=== PATIENT | female | born 1995 | race Caucasian/White ===

== ENCOUNTER 2020-05-07 00:36 | Outpatient (CLI) | payer BC, SELFPAY ==
--- NOTE | 2020-05-07 07:00 | DI.US_ITS ---
EXAM: US SOFT TISSUE HEAD OR NECK CLINICAL HISTORY: evaluate nodule, MOBILE LT NECK MASS,R22.1. TECHNIQUE: Ultrasound was performed using standard protocol. COMPARISON: No exams were available for comparison FINDINGS: Sonographic assessment utilizing grayscale and color Doppler imaging was performed and targeted to th e area of clinical concern. There is an ovoid 0.8 x 0.2 x 0.8 cm well-circumscribed hypoechoic nodule corresponding to the palpab le abnormality. No internal blood flow is seen. No posterior acoustic enhancement or shadowing is s een. IMPRESSION: 0.8 x 0.2 x 0.8 cm hypoechoic nodule in the left neck corresponding to the palpable abnormality. No suspicious findings are seen sonographically. This may represent a benign lesion such as a lymph nod e. If there is continued clinical concern a biopsy may be considered. DATA REPOSITORY:
== END 2020-05-07 00:56 ==
PROVIDERS: PCP Student in an Organized Health Care Education/Training Program; Visit Provider Student in an Organized Health Care Education/Training Program
DX: R22.1 Localized swelling, mass and lump, neck (principal)
CPT/HCPCS: 76536

== ENCOUNTER 2020-05-07 00:50 | Outpatient (CLI) | payer BC, SELFPAY ==
[2020-05-07 13:56] LABS: HGB 12.5 g/dL (11.2-15.7); MCH 28.8 pg (27.0-33.0); MCHC 32.9 % (32.0-36.0); MCV 87.6 fL (80-95); MPV 8.9 fL (8.0-11.0); Platelet Count 346 10^3/uL (130-400); RBC 4.34 10^6/uL (3.93-5.22); WBC 8.84 10^3/uL (4.4-10.8)
[2020-05-07 14:52] LABS: ALT 127 U/L (14-59); AST 48 U/L (15-37); Albumin 4.1 g/dL (3.4-5.0); Alkaline Phosphatase 90 U/L (46-116); Anion Gap 7.6 mmol/L (3-11); BUN 7 mg/dL (7-18); Bilirubin, Total 0.4 mg/dL (0.2-1.0); CO2 27.4 mmol/L (21.0-32.0); CREATININE 0.56 mg/dL (0.55-1.02); Calcium 8.6 mg/dL (8.5-10.1); Calculated LDL 102 mg/dL (<100); Chloride 104 mmol/L (98-107); Cholesterol 161 mg/dL (<200); Glucose 82 mg/dL (74-106); HDL Cholesterol 51 mg/dL (40-60); Potassium 4.4 mmol/L (3.5-5.1); Sodium 139 mmol/L (136-145); TSH (W/Ref FT4) 1.21 uIU/mL (0.36-3.74); Total Protein 7.8 g/dL (6.4-8.2); Triglyceride 43 mg/dL (<150)
== END 2020-05-07 01:10 ==
PROVIDERS: PCP Student in an Organized Health Care Education/Training Program; Visit Provider Student in an Organized Health Care Education/Training Program
DX: Z83.49 Family history of other endocrine, nutritional and metabolic diseases (principal); E04.1 Nontoxic single thyroid nodule; E86.0 Dehydration; Z13.220 Encounter for screening for lipoid disorders; Z86.2 Personal history of diseases of the blood and blood-forming organs and certain disorders involving the immune mechanism
CPT/HCPCS: 36415; 80053; 80061; 85027; 84443

== ENCOUNTER 2021-09-02 09:04 | Outpatient (REF) | payer OTHER, SELFPAY ==
--- NOTE | 2021-09-02 08:30 | PAPFT_PTH ---
PATIENT: Andreas Crane LOC: [facility] U#:[id number] AGE/SX: 26/F ROOM: RE09/02/[address]: Jada Khan DO : 1995 BED: DIS: 09/02/2021 SPEC #: [id number] RECD: 09/02/21 12:54 STATUS: SOUSydni REQ #: [id number] GEMA: 09/02/21 08:[address]: Jada Khan DEPT: [facility] Cytology RECD BY: Eileen Mazariegos ENTERED: 09/02/21 12:55 SP TYPE: PAPFT OT DR: Unknown,Unknown Tissues: 1 - CX/ENDOCX FOR PAP SMEARS Procedures: PAP THIN PREP/UVM Screening Comments: [id number]
== END 2021-09-02 09:05 | disposition home or self-care (01) ==
LOC: LBN 09:04
PROVIDERS: Visit Provider Obstetrics & Gynecology
DX: Z12.4 Encounter for screening for malignant neoplasm of cervix (principal)
CPT/HCPCS: 88142

== ENCOUNTER 2021-11-10 02:00 | Outpatient (CLI) | payer OTHER, SELFPAY ==
[2021-11-10 07:24] LABS: HCT 36.8 % (36.0-46.0); HGB 12.3 g/dL (11.2-15.7); MCH 29.1 pg (27.0-33.0); MCHC 33.4 % (32.0-36.0); MCV 87 fL (80-95); MPV 8.8 fL (8.0-11.0); Platelet Count 279 10^3/uL (130-400); RBC 4.23 10^6/uL (3.93-5.22); RDW 11.9 % (11.7-14.6); RDW-SD 38.4 fL; WBC 6.22 10^3/uL (4.4-10.8)
[2021-11-10 08:49] LABS: ALT 21 U/L (14-59); AST 13 U/L (15-37); Albumin 4.2 g/dL (3.4-5.0); Alkaline Phosphatase 74 U/L (46-116); Anion Gap 8.1 mmol/L (3-11); BUN 10 mg/dL (7-18); Bilirubin, Total 0.5 mg/dL (0.2-1.0); CO2 27.9 mmol/L (21.0-32.0); CREATININE 0.6 mg/dL (0.55-1.02); Calcium 8.6 mg/dL (8.5-10.1); Calculated LDL 105 mg/dL (<100); Chloride 105 mmol/L (98-107); Cholesterol 173 mg/dL (<200); Ferritin 102 ng/mL (8-252); Glucose 89 mg/dL (74-106); HDL Cholesterol 61 mg/dL (40-60); Potassium 4.1 mmol/L (3.5-5.1); Sodium 141 mmol/L (136-145); Total Protein 7.7 g/dL (6.4-8.2); Triglyceride 38 mg/dL (<150); Vitamin B12 618 pg/mL (193-986)
== END 2021-11-10 02:01 | disposition home or self-care (01) ==
LOC: LBO 02:00
PROVIDERS: PCP Nurse Practitioner; Visit Provider Nurse Practitioner
DX: R53.83 Other fatigue (principal); R63.5 Abnormal weight gain; Z13.220 Encounter for screening for lipoid disorders; Z86.2 Personal history of diseases of the blood and blood-forming organs and certain disorders involving the immune mechanism; Z98.84 Bariatric surgery status
CPT/HCPCS: 36415; 80053; 80061; 85027; 82607; 82728; 84443

== ENCOUNTER 2021-12-07 02:20 | Outpatient (CLI) | payer OTHER, SELFPAY ==
--- NOTE | 2021-12-07 14:00 | NS.NUTBLAN_ITS ---
Verito was referred to medical nutrition therapy for weight management. 5'4 173 lbs BMI: 29 Had gastric sleeve in July 2020 with initial weight of 225 lbs. Has lost 52 lbs but wants to lose more. Goal weight: 150 lbs. She is also in process of starting a family but has not gotten yet. Most recent labs indicates lipids, TSH, B12 wnl. No vitamin D taken. Diet Recall: roll for breakfast, lunch a sandwich, granola bars, dinner often take out, popcorn at night. Will vomit if over eats. Session today focused on how to count carbs and to limit carbs to no more than 100 grams daily. Lower carb diet will help with weight loss. Also, recommend 10,000 steps daily- uses fit bit and typically walks 6-8 K per day. Will need to increase steps also to help with further weight loss. Going to [place] next month. Is concerned she will regain weight while there. Reviewed typical meals and how to adjust to avoid higher carb meals. Recommend MVI and Vit D Will follow up for follow up appt. when returns from vacation.
== END 2021-12-07 02:21 | disposition home or self-care (01) ==
LOC: DS 02:20
PROVIDERS: PCP Nurse Practitioner; Visit Provider Dietitian, Registered
DX: Z98.84 Bariatric surgery status (principal); Z68.29 Body mass index [BMI] 29.0-29.9, adult; Z71.3 Dietary counseling and surveillance; E66.8 Other obesity
CPT/HCPCS: 97802

== ENCOUNTER 2022-06-03 02:12 | Outpatient (CLI) | payer OTHER, SELFPAY ==
[2022-06-03 11:37] LABS: Panorama Kit Sent via Fed Ex
[2022-06-03 11:45] LABS: Abs Immature Grans 0.02 10^3/uL (0.0-0.06); Absolute Basophil Count 0.04 10^3/uL (0.0-0.2); Absolute Eosinophil Count 0.12 10^3/uL (0.0-0.7); Absolute Lymphocyte Count 1.68 10^3/uL (1.2-3.4); Absolute Monocyte Count 0.43 10^3/uL (0.1-0.8); Absolute Neutrophil Count 6.04 10^3/uL (1.2-6.7); Basophils % 0.5; Eosinophils % 1.4; HCT 30.4 % (36.0-46.0); HGB 10.5 g/dL (11.2-15.7); Immature Grans % 0.2; Lymphocytes % 20.2; MCH 29.2 pg (27.0-33.0); MCHC 34.5 % (32.0-36.0); MCV 85 fL (80-95); MPV 8.7 fL (8.0-11.0); Monocytes % 5.2; Neutrophils % 72.5; Platelet Count 281 10^3/uL (130-400); RBC 3.59 10^6/uL (3.93-5.22); RDW 12.5 % (11.7-14.6); RDW-SD 38.4 fL; WBC 8.33 10^3/uL (4.4-10.8)
[2022-06-03 12:16] LABS: Glucose,1 Hr (Glucola) 118 mg/dL (80-140)
[2022-06-05 14:26] LABS: Syphilis IgG w/Reflex Nonreactive (Nonreactive)
[2022-06-06 09:14] LABS: Varicella IgG Antibody Positive (See Note)
[2022-06-06 09:18] LABS: Rubella IgG Ab (UVM) Positive (See Note)
[2022-06-06 10:36] LABS: Hepatitis B Surface Ag Negative (Negative)
[2022-06-06 11:13] LABS: Hepatitis C Ab w Rflx HCV PCR Negative (Negative)
[2022-06-06 11:34] LABS: HIV-1/2 Ag & Ab Screen Negative (Negative)
[2022-06-07 15:15] LABS: Specimen WB Whole Blood
[2022-07-13 14:37] LABS: Result Summary NEGATIVE; Specimen WB Whole Blood
== END 2022-06-03 02:13 | disposition home or self-care (01) ==
LOC: LBO 02:12
PROVIDERS: PCP Nurse Practitioner; Visit Provider Advanced Practice Midwife
DX: Z34.91 Encounter for supervision of normal pregnancy, unspecified, first trimester (principal); Z98.84 Bariatric surgery status; Z86.16 Personal history of COVID-19; Z36.89 Encounter for other specified antenatal screening; Z3A.11 11 weeks gestation of pregnancy
CPT/HCPCS: 36415; 81220; 81222; 81329; 82950; 86787; 86803; 86850; 86900; 86901; 87340; 87389; 85025; 86762; 86780

== ENCOUNTER 2022-06-03 13:50 | Outpatient (REF) | payer OTHER, SELFPAY ==
[2022-06-06 12:27] LABS: Chlamydia Result Negative (Negative); GC Result Negative (Negative)
[2022-06-09 12:38] LABS: Buprenorphine Negative ng/mL (Cutoff: 5.0); Norbuprenorphine Negative ng/mL (Cutoff: 2.5)
== END 2022-06-03 13:51 | disposition home or self-care (01) ==
LOC: LBN 13:50
PROVIDERS: PCP Nurse Practitioner; Visit Provider Advanced Practice Midwife
DX: Z34.91 Encounter for supervision of normal pregnancy, unspecified, first trimester (principal)
CPT/HCPCS: 80348; 87491; 87591

== ENCOUNTER 2022-06-21 02:27 | Outpatient (CLI) | payer OTHER, SELFPAY ==
--- NOTE | 2022-06-21 14:30 | NS.NUTBLAN_ITS ---
Verito was referred for nutritional counseling for weight management. July 2020 she had the gastric sleeve with initial weight of 225 lbs, lowest weight 170 lbs. She is now 14 weeks . Weight today is 181 lbs- up 11 lbs in 14 weeks 1 hour glucola 118 wnl Meds: vits, iron Diet Recall: toast x 2, glass milk with eggs and cheese, Snacks: banana, brian. Lunch: salad, snack: fruit, Dinner: chicken, salad and peas. Exercise: none- works FT at [employer] Session today focused on how to avoid unwanted weight gain during . Wt goal at this time is 1 lbs per week with max weight gain of 30 lbs at [place]. Weight goal at term is 200 lbs. Session also reviewed meal plan and provided meal ideas that emphasize complex carbs, lean protein and non starchy vegetables. Recommend checking weight weekly and follow up if weight gain excessive. Recommend walking 1-2 miles daily. Reviewed benefits of breast feeding for weight loss after . No follow up planned at this time.
== END 2022-06-21 02:28 | disposition home or self-care (01) ==
LOC: DS 02:27
PROVIDERS: PCP Nurse Practitioner; Visit Provider Dietitian, Registered
DX: O99.842 Bariatric surgery status complicating pregnancy, second trimester; Z3A.14 14 weeks gestation of pregnancy; R63.5 Abnormal weight gain
CPT/HCPCS: 97803

== ENCOUNTER 2022-09-23 02:14 | Outpatient (CLI) | payer OTHER, SELFPAY ==
[2022-09-23 10:01] LABS: HCT 31.6 % (36.0-46.0); HGB 10.7 g/dL (11.2-15.7); MCH 30.3 pg (27.0-33.0); MCHC 33.9 % (32.0-36.0); MCV 90 fL (80-95); MPV 8.8 fL (8.0-11.0); Platelet Count 248 10^3/uL (130-400); RBC 3.53 10^6/uL (3.93-5.22); RDW 13.2 % (11.7-14.6); RDW-SD 43.2 fL; WBC 7.48 10^3/uL (4.4-10.8)
[2022-09-23 10:14] LABS: Glucose,1 Hr (Glucola) 127 mg/dL (80-140)
== END 2022-09-23 02:15 | disposition home or self-care (01) ==
LOC: LBO 02:14
PROVIDERS: Advanced Practice Midwife; PCP Nurse Practitioner; Visit Provider Advanced Practice Midwife
DX: Z34.92 Encounter for supervision of normal pregnancy, unspecified, second trimester (principal); Z3A.27 27 weeks gestation of pregnancy
CPT/HCPCS: 36415; 82950; 85027

== ENCOUNTER 2022-10-28 00:04 | Outpatient (CLI) | payer OTHER, SELFPAY ==
--- NOTE | 2022-10-28 06:30 | DI.US_ITS ---
Exam(s) US OB ELVIS WEIGHT EXAM: US OB ELVIS WEIGHT CLINICAL HISTORY: check growth,H/O LAPAROSCOPIC GASTRIC BANDING,Z98.84. TECHNIQUE: Transabdominal obstetrical ultrasound performed. COMPARISON: US US OB 2-3 TRIMESTER from 08/05/2022 FINDINGS:: Number of fetuses: One. position: Vertex. Placental location: Posterior. No evidence of previa. BIOMETRIC DATA: BPD: 85mm = 34+3 weeks HC: 326mm = 37+ 0 weeks (this measurement appears to be overestimated with inclusion of portion of th e scalp. AC: 318mm = 35+5 weeks FL: 66 mm = 34+ 0 weeks EFW: 2644 Gms = greater than 97% Composite Age: 30 5+2 weeks EDC: November 22 Heart Rate: 145BPM Amniotic fluid index: 12.8 cm. Amount of fluid is visually within normal limits. IMPRESSION: size and weight are measuring large for dates by approximately 2 weeks.. DATA REPOSITORY:
== END 2022-10-28 00:24 ==
LOC: DI 00:05
PROVIDERS: PCP Nurse Practitioner; Visit Provider Advanced Practice Midwife
DX: Z98.84 Bariatric surgery status (principal)
CPT/HCPCS: 76816

== ENCOUNTER 2022-11-01 15:48 | Outpatient (CLI) | payer OTHER, SELFPAY ==
[2022-11-01 16:18] VITALS: BP 105/67; PULSE 95; TEMP 36.5
--- NOTE | 2022-11-01 17:08 | W.OBNST ---
Date of service: 11/01/22 Time of Service: 17:08 NST Evaluation Reason for NST Reasons for Nonstress Test: FALSE LABOR Gestational Age Gestational Age in Weeks and Days: 33 Weeks and 1Days Test and Monitor Explained Test/Monitor Explained: Test Explained, Monitor Explained and Patient Verbalized Understanding Vital Signs Blood Pressure: 105/67 Pulse: 95 Temperature: 97.7 F Urine Results Urine Protein: Negative Urine Ketones: Negative Urine Glucose: Negative Urine Blood: Negative NST Information Date on Monitor: 11/01/22 Time on Monitor: 15:53 Date off Monitor: 11/01/22 Time off Monitor: 16:43 Total Time on Monitor: 50 NST Interventions: PO Hydration NST Evaluation Patient States Movement: Present FHR Baseline: 130 Variability: Moderate 6-25 bpm Accelerations: 15x15 NST Results: Reactive Note Ultrasound Done: N/A. NST Note Note: Reviewed reactive NST NST Reviewed and Verified by: Marlyou Urias
[2022-11-01 17:09] VITALS: BP 105/67; PULSE 95; TEMP 36.5
== END 2022-11-01 16:54 ==
LOC: BCD 15:51 → OBS 16:08
PROVIDERS: PCP Nurse Practitioner; Visit Provider Advanced Practice Midwife
DX: O47.02 False labor before 37 completed weeks of gestation, second trimester (principal); Z3A.33 33 weeks gestation of pregnancy
CPT/HCPCS: 59025; 87480; 87510; 87660

== ENCOUNTER 2022-11-25 10:25 | Outpatient (REF) | payer OTHER, SELFPAY ==
[2022-11-25 12:06] LABS: *AMPHETAMINES SCREEN URINE Negative (Negative); *BARBITURATES SCREEN URINE Negative (Negative); *BENZODIAZEPINES SCREEN URINE Negative (Negative); Cannabinoids THC Negative (Negative); Cocaine Screen,Urine Negative (Negative); METHADONE URINE SCREEN Negative (Negative); OPIATES URINE SCREEN Negative (Negative)
[2022-11-25 12:07] LABS: Tricyclic Antidepressants Negative (Negative)
[2022-12-03 13:17] LABS: Buprenorphine Negative ng/mL (Cutoff: 5.0); Norbuprenorphine Negative ng/mL (Cutoff: 2.5)
== END 2022-11-25 10:26 | disposition home or self-care (01) ==
LOC: LBN 10:25
PROVIDERS: Advanced Practice Midwife; PCP Nurse Practitioner; Visit Provider Advanced Practice Midwife
DX: Z34.93 Encounter for supervision of normal pregnancy, unspecified, third trimester (principal)
CPT/HCPCS: 80307; 80348; 87081

== ENCOUNTER 2022-12-16 03:24 | Observation (INO) | payer OTHER, SELFPAY ==
--- NOTE | 2022-12-16 | DI.US_ITS ---
Exam(s) US OB ELVIS WEIGHT EXAM: US OB ELVIS WEIGHT CLINICAL HISTORY: no labor, bloody vagina secretion, r/o ROM. TECHNIQUE: Transabdominal obstetrical ultrasound was performed. COMPARISON: US POCUS EXAM from 11/25/2022 FINDINGS: There is a single viable intrauterine gestation with cardiac activity identified-132 bpm The fetus is presently in cephalic position . Amniotic fluid: There is a normal amount of amniotic fluid with an ELVIS of 9.3cm. Placental location: The placenta is posterior grade 2,with no evidence of placenta previa. Dating parameters place this at approximately 40 weeks and 2 days gestational age, implying post term BPD measures 39 weeks and 3 days HC measures out of range AC measures out of range FL measures 41 weeks and 0 days Estimated weight is 4667 gm-10 pounds 5 ounces Fetus is at the greater than 97th percentile on the Hadlock scale. IMPRESSION:: Viable term gestation, as described above. DATA REPOSITORY:
[2022-12-16 03:25] VITALS: BP 99/67; PULSE 75; RESP 17; TEMP 36.5
--- NOTE | 2022-12-16 04:31 | W.OBNST ---
Date of service: 12/16/22 Time of Service: 04:31 NST Evaluation Reason for NST Reasons for Nonstress Test: OTHER, SEE COMMENT Reason for NST Other: rule out labor Gestational Age Gestational Age in Weeks and Days: 39 Weeks and 4Days Test and Monitor Explained Test/Monitor Explained: Test Explained, Monitor Explained and Patient Verbalized Understanding Vital Signs Blood Pressure: 99/67 Pulse: 75 Urine Results Urine Protein: Negative Urine Ketones: Negative Urine Glucose: Negative Urine Blood: Negative NST Information Date on Monitor: 12/16/22 Time on Monitor: 03:27 Date off Monitor: 12/16/22 Time off Monitor: 04:04 Total Time on Monitor: 37 NST Interventions: Reposition Patient and Notify Provider Contraction Frequency: 0 NST Evaluation Patient States Movement: Present FHR Baseline: 135 Variability: Moderate 6-25 bpm Accelerations: 15x15 Decelerations: None NST Results: Reactive Note Ultrasound Done: N/A. NST Note Note: Pt here for r/o SROM @ 0215 Unable to confirm ROM, vaginal secretions are bloody, pt reports clear wet clothing Cvx is closed/50% posterior, firm vtx -2/-3 Will continue obs, see H&P NST Reviewed and Verified by: Blanca Godinez
[2022-12-16 04:33] VITALS: BP 99/67; PULSE 75
--- NOTE | 2022-12-16 04:35 | HPE_ITS ---
Date of service: 12/16/22 Time of Service: 04:35 Assessment and Plan Assessment and plan (1) Vaginal bleeding during : Status: Acute Assessment and plan: A: 27 yo G1 @ 39+4 wks; no labor Membrane status indeterminate though likely intact Category 1 tracing, GBS+ Unfavorable cervix with luis score 2 Bloody vaginal mucous possibly from prodromal sx P: Observation status Encourage pt to sleep, report further gushes or wetness Plan EFW/ELVIS ultrasound this morning OB-HPI Labor/Delivery History of Present Illness Reason for Visit: RULE OUT LABOR Chief Complaint: Suspected Rupture of Membranes , Associated Signs and Symptoms of Suspected ROM: Pt woke up to wet clothing and bed linens @ 0215, states she had bloody mucous on postvoid wipe earlier to this happening but her clothes were not blood stained, just soaked through with large amount of clear fluid. Has not continued to have gushes or trickling down her leg. No pain, baby active.. [facility] Calculator Estimated Delivery Date Method Current WG Current Estimate 12/19/22 Ultrasound #1 39w 4d Other Estimates 12/13/22 LMP (Certain) 40w 3d History of Present Expected Delivery Route/Plan - CNM FOB - [place] (first child) BB yes to circ GBS POSITIVE Specific Issues/Plan 1. History of gastric bypass surgery, early [id number] 1a. 32 week growth US 10/28/22 97% ELVIS WNL, (note indicates HC is overestimated) 2. Covid infection in first trimester - offered ASA daily start @ 12 wks 3. Genetic testing offered - [employer] low risk x5 male, CF/SMA negative 4. Anemia - Taking gummy vitamins - Ferrus sulfate escribed. 4a.Hgb at 27 wks was 10.7, will take iron with vit C, recheck @ 36 wks 5. constipation with rectal bleeding 07/06/22 - colace recommend 5a. constipation improved - colace discontinued. 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 Medical History (Updated 12/16/22 @ 04:48 by Blanca Godinez) Delayed menses Hx of gastritis Hx of iron deficiency anemia Pre-conception counseling Subcutaneous nodule of neck left side, palpable, soft, mobile .. Uses control Condoms currently, Hx injections (presumed depo-provera) .. Weight gain Two years in [place] with new , both relying on fast food. Surgical History (Updated 05/30/22 @ 13:52 by Elana Benjamin CNM) Hx of pelvic surgery Laparoscopy for cyst removal, benign(?). PAP (-) .. All in [place]. Family History (Updated 06/03/22 @ 10:08 by Elana Benjamin CNM) Paternal Grandfather Hypertension Stroke Father Hypertension Maternal Uncle Diabetes Paternal Grandmother Hypertension Paternal Uncle Schizophrenia Other Cancer Social History Smoking/Tobacco Use Status: Former Tobacco Use Smoking risk assessment performed?: Yes Alcohol Intake: current Alcohol Intake frequency: holidays/special occasions only Drug use: Never Substance use type: does not use Adopted: No Caregiver/Support person: No Foster care: No Household members: spouse Housing: apartment Number of Children: 0 Communication Needs: Language Barriers Education Level: college Details: Bachelor's Degree Do you need help understanding health information?: Rarely 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, [employer] Pets and animals: Yes Pets and animals: dog(s) Sexually active: Yes Do you think of yourself as: straight/heterosexual Current gender identity: female What is your relationship status?: How often do you talk on the phone with friends or family?: three or more times per week How often do you get together with friends or relatives?: once per week Do you belong to any clubs or organized social groups?: no Panel score (0-1 are the most socially isolated patients): 2 What type of physical activity do you participate in: none Daphnie/Restorationism: Islam Special daphnie needs: No Seatbelt use: always Helmet use: Yes Helmet use: always 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 Female Reproductive History Menstrual control method: condoms History History 1 Para 0 Hx # Term Pregnancies 0 Multiple births 0 Hx # Pregnancies 0 Ectopic pregnancies 0 AB induced 0 Hx Number of Living Children 0 AB spontaneous 0 Meds Allergies and Home Medications Allergies Allergy/AdvReac Type Severity Reaction Status Date / Time No Known Allergies Allergy Verified 12/09/22 09:49 Home Medications Medication Instructions Recorded Confirmed Type prenat.vits,kathrine,zke-vbca-iwnza 1 tab PO DAILY 11/02/21 12/16/22 History ferrous sulfate 325 mg (65 mg 325 mg PO DAILY #30 tabs 06/03/22 12/16/22 Rx iron) tablet (Feosol) aspirin 81 mg tablet,delayed 81 mg PO DAILY 08/29/22 12/16/22 History release (Adult Low Dose Aspirin) Exam Physical Exam Vital signs: Temp Pulse Resp BP 97.7 F 75 17 99/67 L 12/16/22 03:25 12/16/22 03:25 12/16/22 03:25 12/16/22 03:25 Vital Signs Reviewed: Yes Constitutional Constitutional: no acute distress Detailed Labor and Delivery Exam Dilation: 0 Effacement (%): 50 station: -2 Cervix position: posterior Consistency: firm LUIS Score(Cervical Ripeness Score): 2 Amniotic Membrane Status: Other (indeterminate: pt's report suggestive of clear SROM at home@ 0215, however neg nitrizine, neg ferns on SSE, small amt red/brown vaginal fluids on SSE upon arrival in unit) Pooling: Positive (red/brown rust colored thin mucous) Nitrazine: Negative Ferning: Absent Contraction Frequency(min): rare Contraction Intensity: Mild Fetus A Heart Rate Baseline: 135 Monitor Accelerations: 15 X 15 Monitor Decelerations: None Variability: Moderate (6-25 BPM) Categories: Category I Est. Weight: 8 lb 9.568 oz Est. Weight: 3900 gms HEENT Exam HEENT Exam: Normal Neck Exam Neck Exam: Normal Chest/Brest/Axilla Exam Chest Exam: Normal Breast Exam Breast Exam: Not Done Respiratory Exam Respiratory Exam: Normal Cardiovascular Exam Cardiovascular Exam: Normal Abdominal Exam Abdominal Exam: Normal (Gravid, soft and nontender, ) Rectal Exam Rectal Exam: Other Exam Exam: Normal Extremities Exam Extremities Exam: Normal Back/Spine/Pelvis Exam Back Exam: Normal Pelvis Adequate: Yes Skin Exam Skin Exam: Normal Neurological Exam Neurological Exam: Normal Psychiatric Exam Psychiatric Exam: Normal Results Results Group Beta Strep: Positive Blood Type: O+ Rubella Status: Immune Varicella Immunity: Immune Risk Assessment Risk for Shoulder Dystocia Historical/Initial OB: POSITIVE FOR: Pre- BMI>30 Increased Risk?: Yes Counseling: increased risk d/t primipara status and possible LGA Delivery Plan @ 36wks: NVD Risk for Pre-Eclampsia Daily Dose ASA Indicated: Yes Date Initiated/Initials: started low dose ASA at 12 wks Yes, if one or more: NEGATIVE FOR: Hx Pre-E/Gest HTN, Chronic HTN, Multiple Gestation, Pre-gestational DM, Renal Disease, Systemic Lupus or APA Syndrome Yes, if 2 or more: POSITIVE FOR: Nulliparity and BMI>30 Risk for Post- Hemorrhage Initial: NEGATIVE FOR: Multiple Gestation, Previous PPH, Known Clotting Deficiency, Grand Multiparity or Anticoagulation At Risk?: Yes (bloody vaginal secretions without labor) Counseled re: Active Management: Yes Risks Reviewed Risks Reviewed Upon Admission: Yes
[2022-12-16 08:19] VITALS: BP 106/65; PULSE 81
[2022-12-16 08:20] VITALS: BP 106/65; PULSE 81; TEMP 36.8
--- NOTE | 2022-12-16 09:04 | DSE_ITS ---
Date of service: 12/16/22 Time of Service: 09:04 DS: Diagnosis Discharge Diagnosis (1) Vaginal bleeding during : Status: Acute Discharge Plan Disposition Patient Disposition: Home Condition: Good Discharge Details Reason For Visit: RULE OUT LABOR Admit Date/Time: 12/16/22 03:24 Admit Provider: Blanca Godinez Attending Provider: Blanca Godinez Primary Care Provider: Lindsay Hernandez Hospital Course Hospital Course: not ruptured, no in labor, no active bleeding, to home after several hours of observation Home Meds and New Rx's Prescriptions: No Action ferrous sulfate [Feosol] 325 mg (65 mg iron) tablet 325 mg PO DAILY Qty: 30 9RF aspirin [Adult Low Dose Aspirin] 81 mg tablet,delayed release (DR/EC) 81 mg PO DAILY Patient Comments: 08/29/22 pt alternates 81mg and 162mg prenat.vits,kathrine,ehw-bjpg-thquv Tablet 1 tab PO DAILY Discharge Instructions Stand Alone Forms: Center Observation Activity:: Activity as Tolerated Equipment/Supplies:: No Equipment Needed Diet:: Normal Diet Discharge Orders Discharge Orders: Discharge Order (Routine); Ordered 12/16/22 Ordered By: Blanca Godinez Discharge Data Discharge Date/Time-TO BE ENTERED AT DEPARTURE: 12/16/22 09:03 OB:DS Summary Contraception Discussed Contraception Discussed: No, Status at Discharge Functional status at discharge: independent ambulation Overall status at discharge: patient is back to baseline Mental Status: mental status grossly normal Speech and Movement: speech and movement normal and speech clear Mood: congruent mood Affect: normal affect Exam Physical Exam Vital signs: Temp Pulse Resp BP 97.7 F 81 17 106/65 12/16/22 03:25 12/16/22 08:19 12/16/22 03:25 12/16/22 08:19 Vital Signs Reviewed: Yes Constitutional Constitutional: no acute distress HEENT Exam HEENT Exam: Normal Neck Exam Neck Exam: Normal Respiratory Exam Respiratory Exam: Normal Cardiovascular Exam Cardiovascular Exam: Normal Rectal Exam Rectal Exam: Other Back/Spine/Pelvis Exam Back Exam: Normal Skin Exam Skin Exam: Normal Neurological Exam Neurological Exam: Normal Psychiatric Exam Psychiatric Exam: Normal PFSH All Active Problems (Updated 12/16/22 @ 04:48 by Blanca Godinez) Vaginal bleeding during (Acute) Group B Streptococcus carrier, +RV culture, currently (Acute) Anemia affecting (Acute) (Acute) COVID-19 affecting in first trimester (Acute ~05/01/22) Lower back pain (Acute) Noted since wt loss, 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 Medical History (Updated 12/16/22 @ 04:48 by Blanca Godinez) Delayed menses Hx of gastritis Hx of iron deficiency anemia Pre-conception counseling Subcutaneous nodule of neck left side, palpable, soft, mobile .. Uses control Condoms currently, Hx injections (presumed depo-provera) .. Weight gain [place] new , both relying on fast food. Surgical History (Updated 05/30/22 @ 13:52 by Elana Benjamin CNM) Hx of pelvic surgery Laparoscopy for cyst removal, benign(?). PAP (-) .. All in [place]. Family History (Updated 06/03/22 @ 10:08 by Elana Benjamin CNM) Paternal Grandfather Hypertension Stroke Father Hypertension Maternal Uncle Diabetes Paternal Grandmother Hypertension Paternal Uncle Schizophrenia Other Cancer Social History Smoking/Tobacco Use Status: Former Tobacco Use Smoking risk assessment performed?: Yes Alcohol Intake: current Alcohol Intake frequency: holidays/special occasions only Drug use: Never Substance use type: does not use Adopted: No Caregiver/Support person: No Foster care: No Household members: spouse Housing: apartment Number of Children: 0 Communication Needs: Language Barriers Education Level: college Details: Bachelor's Degree Do you need help understanding health information?: Rarely 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, [employer] Pets and animals: Yes Pets and animals: dog(s) Sexually active: Yes Do you think of yourself as: straight/heterosexual Current gender identity: female What is your relationship status?: How often do you talk on the phone with friends or family?: three or more times per week How often do you get together with friends or relatives?: once per week Do you belong to any clubs or organized social groups?: no Panel score (0-1 are the most socially isolated patients): 2 What type of physical activity do you participate in: none Daphnie/Sabianism: Cheondoism Special daphine needs: No Seatbelt use: always Helmet use: Yes Helmet use: always Drive 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 or ride w/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 Female Reproductive History Menstrual control method: condoms History History 1 Para 0 Hx # Term Pregnancies 0 Multiple births 0 Hx # Pregnancies 0 Ectopic pregnancies 0 AB induced 0 Hx Number of Living Children 0 AB spontaneous 0 DS: Data Vitals/I&O Vitals and I&O: Vital Signs Temperature 97.7 F 12/16/22 03:25 Temperature 98.2 F 12/16/22 08:20 Pulse 81 12/16/22 08:19 Pulse 81 12/16/22 08:20 Pulse Rhythm Regular 12/16/22 03:25 Respiratory Rate 17 12/16/22 03:25 Blood Pressure 106/65 12/16/22 08:19 Blood Pressure 106/65 12/16/22 08:20 Oxygen Delivery Method Room Air 12/16/22 03:25 Oxygen Flow Rate 0 12/16/22 03:25 Intake & Output 12/15/22 12/15/22 12/16/22 11:59 23:59 11:59 Weight 205 lb Other: Urine Color Yellow
--- NOTE | 2022-12-16 10:15 | W.OBNST ---
Date of service: 12/16/22 Time of Service: 10:15 NST Evaluation Reason for NST Reasons for Nonstress Test: OTHER, SEE COMMENT Reason for NST Other: R/O labor Gestational Age Gestational Age in Weeks and Days: 39 Weeks and 4Days Test and Monitor Explained Test/Monitor Explained: Test Explained, Monitor Explained and Patient Verbalized Understanding Vital Signs Blood Pressure: 106/65 Pulse: 81 Temperature: 98.2 F Urine Results Urine Protein: Negative Urine Ketones: Negative Urine Glucose: Negative Urine Blood: Negative NST Information Date on Monitor: 12/16/22 Time on Monitor: 08:21 Date off Monitor: 12/16/22 Time off Monitor: 08:50 Total Time on Monitor: 29 NST Interventions: Meal Given Contraction Frequency: 0 NST Evaluation Patient States Movement: Present FHR Baseline: 135 Variability: Moderate 6-25 bpm Accelerations: 15x15 Decelerations: None NST Results: Reactive Note Ultrasound Done: N/A. NST Note Note: EFW/ELVIS done in the DI, EFW in 97th percentile, ELVIS 9.3 Pt scheduled for next check up 12/20 NST Reviewed and Verified by: Blanca Godinez
[2022-12-16 10:16] VITALS: BP 106/65; PULSE 81; TEMP 36.8
[2022-12-18 16:17] VITALS: BP 114/56; PULSE 67
[2022-12-18 17:20] VITALS: BP 106/59; PULSE 60
== END 2022-12-16 09:03 | disposition home or self-care (01) ==
LOC: OBS 10:46
PROVIDERS: Admitting Provider Advanced Practice Midwife; PCP Nurse Practitioner; Visit Provider Advanced Practice Midwife
DX: O46.93 Antepartum hemorrhage, unspecified, third trimester (principal); O36.0930 Maternal care for other rhesus isoimmunization, third trimester, not applicable or unspecified; O99.013 Anemia complicating pregnancy, third trimester; D64.9 Anemia, unspecified; O99.613 Diseases of the digestive system complicating pregnancy, third trimester; O99.820 Streptococcus B carrier state complicating pregnancy; K59.00 Constipation, unspecified; M54.50 Low back pain, unspecified; O99.843 Bariatric surgery status complicating pregnancy, third trimester; Z3A.39 39 weeks gestation of pregnancy
CPT/HCPCS: 76816; 59025; G0378

== ENCOUNTER 2022-12-18 23:28 | Inpatient (IN) | payer OTHER, SELFPAY ==
[2022-12-18 23:18] VITALS: BP 127/74; PULSE 84; TEMP 36.8
[2022-12-18 23:20] VITALS: BP 127/74; PULSE 84; TEMP 36.8
--- NOTE | 2022-12-18 23:30 | W.PM.OBHPL1 ---
Date of service: 12/18/22 Time of Service: 23:30 Assessment and Plan Assessment and plan (1) Normal labor: Status: Acute Assessment and plan: 1. Admitted for labor and pain management, would like epidural for pain 2. IV access and admission labs 3. Will arrange for epidural when IV access has been obtained as per patient plan. ANGLE (2) LGA (large for gestational age) fetus affecting management of mother: Status: Acute Assessment and plan: 1. US on 12/16 EFW [id number] ([id number]) cephalic. Patient is aware and we will discuss potential for shoulder dystocia as well as risk for PPH and the use of active management. Plan will be to also have OB physician come to hospital at time of delivery. 2. Will review with anesthesia DEALER COMPLIANCE REPRESENTATIVE when they present for epidural. 3. Nursing aware of moder risk for shoulder dystocia and PPH. (3) Group B Streptococcus carrier, +RV culture, currently : Status: Acute Assessment and plan: 1. PCN prophylaxis per orders. OB-HPI Labor/Delivery History of Present Illness Reason for Visit: NST Chief Complaint: Uterine Contractions. CRYSTAL Calculator Estimated Delivery Date Method Current WG Current Estimate 12/19/22 Ultrasound #1 39w 6d Other Estimates 12/13/22 LMP (Certain) 40w 5d Comments: Andreas presents for labor check. Reports labor started at 0300 today but was very irregular until approximately 9pm when contractions became regular every 5 minutes and no longer tolerable at home. She is requesting epidural for pain management. care has been uncomplicated except for GBS + status which we will treat with PCN. History of Present Expected Delivery Route/Plan - CNM FOB - Aren [place] (first child) BB yes to circ GBS POSITIVE Specific Issues/Plan 1. History of gastric bypass surgery, early GTT-118 1a. 32 week growth US 10/28/22 97% ELVIS WNL, (note indicates HC is overestimated) 2. Covid infection in first trimester - offered ASA daily start @ 12 wks 3. Genetic testing offered - Panorama low risk x5 male, CF/SMA negative 4. Anemia - Taking gummy vitamins - Ferrus sulfate escribed. 4a.Hgb at 27 wks was 10.7, will take iron with vit C, recheck @ 36 wks 5. constipation with rectal bleeding 07/06/22 - colace recommend 5a. constipation improved - colace discontinued. Assessment: History Reviewed & Current Informed Consent Informed Consent: Regional Anesthesia and Risk,Benefits,Alternatives Discussed Review of Systems All systems reviewed & are unremarkable except as noted in HPI and below Genitourinary Comments: small amount of old bloody discharge Musculoskeletal Comments: regular uterine contractions PFSH All Active Problems (Updated 12/18/22 @ 23:41 by Elana Herzog CNM) LGA (large for gestational age) fetus affecting management of mother (Acute) Normal labor (Acute) Group B Streptococcus carrier, +RV culture, currently (Acute) Anemia affecting (Acute) (Acute) COVID-19 affecting in first trimester (Acute ~05/01/22) Lower back pain (Acute) Noted since wt loss, 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 Medical History Delayed menses Hx of gastritis Hx of iron deficiency anemia Pre-conception counseling Subcutaneous nodule of neck left side, palpable, soft, mobile .. Uses control Condoms currently, Hx injections (presumed depo-provera) .. Weight gain Two [place] in [place] with new , both relying on fast food. Surgical History Hx of pelvic surgery Laparoscopy for cyst removal, benign(?). PAP (-) .. All in [place]. Family History Paternal Grandfather Hypertension Stroke Father Hypertension Maternal Uncle Diabetes Paternal Grandmother Hypertension Paternal Uncle Schizophrenia Other Cancer Social History Smoking/Tobacco Use Status: Former Tobacco Use Smoking risk assessment performed?: Yes Alcohol Intake: current Alcohol Intake frequency: holidays/special occasions only Drug use: Never Substance use type: does not use Adopted: No Caregiver/Support person: No Foster care: No Household members: spouse Housing: apartment Number of Children: 0 Communication Needs: Language Barriers Education Level: college Details: Bachelor's Degree Do you need help understanding health information?: Rarely 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, [employer] Pets and animals: Yes Pets and animals: dog(s) Sexually active: Yes Do you think of yourself as: straight/heterosexual Current gender identity: female What is your relationship status?: How often do you talk on the phone with friends or family?: three or more times per week How often do you get together with friends or relatives?: once per week Do you belong to any clubs or organized social groups?: no Panel score (0-1 are the most socially isolated patients): 2 What type of physical activity do you participate in: none Daphnie/Church: [employer] Special daphnie needs: No Seatbelt use: always Helmet use: Yes Helmet use: always Drive intox or ride w/intox cdl bulk driver: No Female Reproductive History Menstrual control method: condoms History History 1 Para 0 Hx # Term Pregnancies 0 Multiple births 0 Hx # Pregnancies 0 Ectopic pregnancies 0 AB induced 0 Hx Number of Living Children 0 AB spontaneous 0 Meds Allergies and Home Medications Allergies Allergy/AdvReac Type Severity Reaction Status Date / Time No Known Allergies Allergy Verified 12/18/22 23:37 Home Medications Medication Instructions Recorded Confirmed Type prenat.vits,kathrine,fva-vlvh-felpw 1 tab PO DAILY 11/02/21 12/18/22 History ferrous sulfate 325 mg (65 mg 325 mg PO DAILY #30 tabs 06/03/22 12/16/22 Rx iron) tablet (Feosol) aspirin 81 mg tablet,delayed 81 mg PO DAILY 08/29/22 12/16/22 History release (Adult Low Dose Aspirin) Exam Physical Exam Vital signs: Pulse BP 84 127/74 12/18/22 23:20 12/18/22 23:20 Vital Signs Reviewed: Yes Constitutional Constitutional: mild distress and obese Detailed Labor and Delivery Exam Dilation: 4 Effacement (%): 80 station: -1 Cervix position: posterior Consistency: soft Luis Score: Cervical Points Exam 0 1 2 3 Dilation Closed 1-2cm 3-4 cm 5-6cm Effacement 0-30% 40-50% 60-70% 80% Consistency Firm Medium Soft Station -3 -2 -1,0 +1,+2 Position Posterior Mid Anterior LUIS Score(Cervical Ripeness Score): 9 Amniotic Membrane Status: Intact Monitor Mode: Palpation Contraction Frequency(min): 3-6 Contraction Duration(sec): 60 Contraction Intensity: Moderate Fetus A Heart Rate Baseline: 125 Monitor Accelerations: 15 X 15 Monitor Decelerations: None Variability: Moderate (6-25 BPM) Categories: Category I Est. Weight: 10 lb 4.624 oz Assessment Note: US was done recently 12/09/22, EFW based on that US. HEENT Exam HEENT Exam: Normal Neck Exam Neck Exam: Normal (normal visual exam) Chest/Brest/Axilla Exam Chest Exam: Normal Breast Exam Breast Exam: Not Done Respiratory Exam Respiratory Exam: Normal Cardiovascular Exam Cardiovascular Exam: Normal Abdominal Exam Abdominal Exam: Normal (gravid uterus, size equals dates) Rectal Exam Rectal Exam: Not Done Exam Exam: Normal Extremities Exam Extremities Exam: Normal Back/Spine/Pelvis Exam Back Exam: Normal Pelvis Adequate: Yes Skin Exam Skin Exam: Normal Neurological Exam Neurological Exam: Normal Psychiatric Exam Psychiatric Exam: Normal Results Results Group Beta Strep: Positive Blood Type: O+ Rubella Status: Immune Varicella Immunity: Immune Lab Results: Hep B and C neg, HIV neg, Syphilis neg, SMA and CF neg, cfDNA Low Risk male, 1 hour in early 118 and repeat 28 weeks 127. Risk Assessment Risk for Shoulder Dystocia Historical/Initial OB: POSITIVE FOR: Pre- BMI>30 Counseling: increased risk d/t primipara status and possible LGA Delivery Plan @ 36wks: NVD Delivery Plan @ 40 wks: LGA by US, moderate risk. Risk for Pre-Eclampsia Date Initiated/Initials: started low dose ASA at 12 wks Yes, if one or more: NEGATIVE FOR: Hx Pre-E/Gest HTN, Chronic HTN, Multiple Gestation, Pre-gestational DM, Renal Disease, Systemic Lupus or APA Syndrome Yes, if 2 or more: POSITIVE FOR: Nulliparity and BMI>30 Risk for Post- Hemorrhage Initial: NEGATIVE FOR: Multiple Gestation, Previous PPH, Known Clotting Deficiency, Grand Multiparity or Anticoagulation At Risk?: Yes (BMI and LGA baby) Counseled re: Active Management: Yes Date/Initials: 12/18/22 Risks Reviewed Risks Reviewed Upon Admission: Yes
[2022-12-18] MEDS: Penicillin G POT. 5,000,000 UNITS in Normal Saline 100 ML 200 UNITS IVPB (23:47)
[2022-12-18] MEDS: Lactated Ringers 1,000 ML 125 ML IV (23:48)
[2022-12-18 23:56] LABS: HCT 36.1 % (36.0-46.0); HGB 12.6 g/dL (11.2-15.7); MCH 30.7 pg (27.0-33.0); MCHC 34.9 % (32.0-36.0); MCV 88 fL (80-95); MPV 9.5 fL (8.0-11.0); Platelet Count 223 10^3/uL (130-400); RDW 12.6 % (11.7-14.6); RDW-SD 40.6 fL; WBC 11.84 10^3/uL (4.4-10.8)
[2022-12-19] VITALS (37 sets, daily range): BP systolic 75–127; BP diastolic 47–81; PULSE 70–116; RESP 16–18; TEMP 36.4–36.8; O2SAT 96–100
--- NOTE | 2022-12-19 01:11 | W.OBNST ---
Date of service: 12/18/22 Time of Service: 23:30 NST Evaluation Reason for NST Reasons for Nonstress Test: OTHER, SEE COMMENT Reason for NST Other: Rule out labor Gestational Age Gestational Age in Weeks and Days: 39 Weeks and 6Days Test and Monitor Explained Test/Monitor Explained: Test Explained, Monitor Explained and Patient Verbalized Understanding Vital Signs Blood Pressure: 127/74 Pulse: 84 Temperature: 98.2 F Urine Results Urine Protein: Negative Urine Ketones: Positive Urine Glucose: Negative Urine Blood: Positive NST Information Date on Monitor: 12/18/22 Time on Monitor: 23:11 Date off Monitor: 12/18/22 Time off Monitor: 23:33 Total Time on Monitor: 22 NST Interventions: None Contraction Frequency: 3-6 mins NST Evaluation Patient States Movement: Present FHR Baseline: 135 Variability: Moderate 6-25 bpm Accelerations: 15x15 Decelerations: None NST Results: Reactive Note Ultrasound Done: N/A. NST Note Note: NST is reactive and reassuring. Patient admitted in labor NST Reviewed and Verified by: Elana Herzog
[2022-12-19] MEDS: FentaNYL/ROPIvacaine 2 mcg/ml and 0.1% 200 ML CADD Cassette EP (01:35)
--- NOTE | 2022-12-19 01:46 | ANES.NEUR_ITS ---
Epidural/Spinal Catheter Date Performed: 12/19/22 Procedure Start: 12:55 Procedure Stop: 01:35 Requesting Provider: Elana Herzog Procedure Location: Obstetrics Reason Performed: Labor Epidural Standard Monitors Applied: ECG, Blood Pressure, SpO2 and See EMR for corresponding vital signs Patient Position: Sitting Sedation Given (Indicate Dose Given): No Sedation given Patient Mental Status: Awake Sterility: Hand Hygiene, Surgical Cap, Surgical Mask, Sterile Gloves, Sterile Drape/Sheet, Eye Protection and Chlorhexidine Procedure Location: L3-L4 Interspace Epidural Needle: Tuohy 18 Gauge Needle Length: 3.5 Inch Needle Approach: Midline Epidural Procedure: Skin Prepped, Sterile Drape Placed, 1% Lidocaine to skin and subcutaneous tissue with 25G needle, Tuohy Needle placed, YURI to Saline Used, Epidural Catheter Placed, Negative Heme, Negative CSF Flow and Tuohy Needle Removed Catheter Placed?: Catheter Placed Test Dose (Indicate Dose Given): 3ml 1.5% L idocaine with 1:200K Epinephrine Given and Negative Test Dose Loss of Resistance Depth (cm): 6 Catheter depth at skin (cm): 11 Dressing: Sorbaview Dressing Placed Epidural Provider Bolus (Indicate Dose Given): Total Ropivacaine 0.1% with Fentanyl 2mcg/ml Given from pump. (ml) Dose:: 6ml Additives (Indicate Dose Given ): None Infusion Medication: Medication Infusion Began Medication Infusion: Ropivacaine 0.1% with Fentanyl 2mcg/ml Maintenance Infusion Rate (ml/hour): 10 PCEA Bolus Dose (ml): 5 Block Level: T8 Paresthesia: None Ultrasound: Used to lindsey site Number of Attempts (See previous attempts in note section): 1 Procedure Tolerated: No Complications and Patient tolerated well Procedure Outcome: Successful Performed By: Cuco Domingo
--- NOTE | 2022-12-19 01:49 | W.PM.OBNL1 ---
Date of service: 12/19/22 Time of Service: 01:49 Informed Consent Informed Consent: Regional Anesthesia and Risk,Benefits,Alternatives Discussed Pelvic Exam Comments: VE deferred Contractions Monitor Mode: External Contraction Frequency(min): 5-6 Contraction Duration(sec): 50-60 Intensity: Mild/Moderate Fetus A Monitor: External (US) Heart Rate Baseline: 132 Categories: Category I Amniotic Membrane Status: Intact Assessment and Plan Assessment and plan (1) Normal labor: Status: Acute Assessment and plan: 1. epidural is in place and plan to allow for sleep until 0400 and then reassess cervix and possible augmentation of labor if needed. Objective Abnormal lab results 12/18/22 Range/Units 23:39 WBC 11.84 H (4.4-10.8) 10^3/uL Temp Pulse BP Pulse Ox 98.2 F 75 104/72 98 12/18/22 23:20 12/19/22 01:48 12/19/22 01:42 12/19/22 01:48 Laboratory Results WBC 11.84 10^3/uL (4.4-10.8) H 12/18/22 23:39 RBC 4.10 10^6/uL (3.93-5.22) 12/18/22 23:39 Hgb 12.6 g/dL (11.2-15.7) 12/18/22 23:39 Hct 36.1 % (36.0-46.0) 12/18/22 23:39 MCV 88 fL (80-95) 12/18/22 23:39 MCH 30.7 pg (27.0-33.0) 12/18/22 23:39 MCHC 34.9 % (32.0-36.0) 12/18/22 23:39 RDW 12.6 % (11.7-14.6) 12/18/22 23:39 Plt Count 223 10^3/uL (130-400) 12/18/22 23:39 MPV 9.5 fL (8.0-11.0) 12/18/22 23:39 Patient ABO/Rh O Positive 12/18/22 23:39 Antibody Screen NEGATIVE 12/18/22 23:39 Subjective Interval history since last seen: some relief from epidural. Plans to nap and be reassessed at 4 am when second dose of antibiotic is due. KH Results Hemoglobin/Hematocrit: Hgb 12.6 g/dL (11.2-15.7) 12/18/22 23:39 Hct 36.1 % (36.0-46.0) 12/18/22 23:39 Abnormal Lab Findings: Abnormal Labs 12/18/22 23:39 WBC 11.84 H
[2022-12-19] MEDS: Penicillin G POT. 3,000,000 UNITS in Normal Saline 50 ML 100 UNITS IVPB ×2 (04:04→08:30)
--- NOTE | 2022-12-19 04:10 | PGE_ITS ---
Date of service: 12/19/22 Time of Service: 04:10 Informed Consent Informed Consent: Augmentation of Labor, Regional Anesthesia and Risk,Benefits,Alternatives Discussed Pelvic Exam Dilation: 4 Effacement (%): 80 station: -1 Cervix Position: mid Contractions Monitor Mode: External Contraction Frequency(min): 5-8 Contraction Duration(sec): 60-60 Intensity: Mild/Moderate Fetus A Monitor: External (US) Heart Rate Baseline: 125 Variability: Moderate (6-25 BPM) Categories: Category I Accelerations: 10 X 10 Decelerations: None Amniotic Membrane Status: Intact (bulging at cervix now) Assessment and Plan Assessment and plan (1) Irregular labor: Status: Acute Assessment and plan: 1. Will begin pitocin augmentation and reassess once contractions are regular for 1-2 hours and more intense or as indicated by maternal status. 2. Reviewed risks and benefits of pitocin. Patient agrees to pitocin augm entation. 3. Andreas is unable to feel to empty her bladder and dale will be placed at thsi time to keep bladder empty. KH Objective Abnormal lab results 12/18/22 Range/Units 23:39 WBC 11.84 H (4.4-10.8) 10^3/uL Temp Pulse Resp BP Pulse Ox 98.0 F 91 H 16 93/58 L 97 12/19/22 04:05 12/19/22 04:05 12/19/22 04:05 12/19/22 04:05 12/19/22 04:05 Laboratory Results WBC 11.84 10^3/uL (4.4-10.8) H 12/18/22 23:39 RBC 4.10 10^6/uL (3.93-5.22) 12/18/22 23:39 Hgb 12.6 g/dL (11.2-15.7) 12/18/22 23:39 Hct 36.1 % (36.0-46.0) 12/18/22 23:39 MCV 88 fL (80-95) 12/18/22 23:39 MCH 30.7 pg (27.0-33.0) 12/18/22 23:39 MCHC 34.9 % (32.0-36.0) 12/18/22 23:39 RDW 12.6 % (11.7-14.6) 12/18/22 23:39 Plt Count 223 10^3/uL (130-400) 12/18/22 23:39 MPV 9.5 fL (8.0-11.0) 12/18/22 23:39 Patient ABO/Rh O Positive 12/18/22 23:39 Antibody Screen NEGATIVE 12/18/22 23:39 Vital Signs Reviewed: Yes Subjective Interval history since last seen: Has been able to sleep and reports feeling much better with epidural in place. KH Interventions Augmentation , Pitocin rate (mU/min): 2 Results Hemoglobin/Hematocrit: Hgb 12.6 g/dL (11.2-15.7) 12/18/22 23:39 Hct 36.1 % (36.0-46.0) 12/18/22 23:39 Abnormal Lab Findings: Abnormal Labs 12/18/22 23:39 WBC 11.84 H
[2022-12-19] MEDS: Oxytocin/Normal Saline 30 UNIT/500 ML BAG 2 UNITS IV (04:42)
[2022-12-19] MEDS: Lactated Ringers 1,000 ML 125 ML IV (04:49)
--- NOTE | 2022-12-19 08:11 | W.PM.OBNL1 ---
Date of service: 12/19/22 Time of Service: 08:11 Informed Consent Informed Consent: Augmentation of Labor, Regional Anesthesia and Risk,Benefits,Alternatives Discussed Pelvic Exam Dilation: 9 Effacement (%): 100 station: -1 Position: PIETER Cervix Position: anterior Consistency: soft Contractions Monitor Mode: External Contraction Frequency(min): 2-3 Contraction Duration(sec): 60 Intensity: Moderate/Strong Fetus A Monitor: External (US) Heart Rate Baseline: 125 Variability: Moderate (6-25 BPM) Categories: Category I Accelerations: 10 X 10 Decelerations: None Assessment and Plan Assessment and plan (1) LGA (large for gestational age) fetus affecting management of mother: Status: Acute Assessment and plan: 1. Patient has progressed well on pitocin which is currently 6 mu 2. Question if fluid may have meconium, forewaters ruptured and were clear with old blood noted, will continue to assess at 3. Dr. Dupree is aware of patient status and recent US. Progress has been good and we will continue to expect NVD 4. I have reviewed with patient and staff risks and plan of care. ANGLE (2) Group B Streptococcus carrier, +RV culture, currently : Status: Acute Assessment and plan: 1. Receiving dose 3 of PCN, expect NVD soon. ANGLE Objective Abnormal lab results 12/18/22 Range/Units 23:39 WBC 11.84 H (4.4-10.8) 10^3/uL Temp Pulse Resp BP Pulse Ox 97.5 F L 84 16 92/50 L 99 12/19/22 07:53 12/19/22 07:53 12/19/22 07:53 12/19/22 07:53 12/19/22 07:53 Laboratory Results WBC 11.84 10^3/uL (4.4-10.8) H 12/18/22 23:39 RBC 4.10 10^6/uL (3.93-5.22) 12/18/22 23:39 Hgb 12.6 g/dL (11.2-15.7) 12/18/22 23:39 Hct 36.1 % (36.0-46.0) 12/18/22 23:39 MCV 88 fL (80-95) 12/18/22 23:39 MCH 30.7 pg (27.0-33.0) 12/18/22 23:39 MCHC 34.9 % (32.0-36.0) 12/18/22 23:39 RDW 12.6 % (11.7-14.6) 12/18/22 23:39 Plt Count 223 10^3/uL (130-400) 12/18/22 23:39 MPV 9.5 fL (8.0-11.0) 12/18/22 23:39 Patient ABO/Rh O Positive 12/18/22 23:39 Antibody Screen NEGATIVE 12/18/22 23:39 Vital Signs Reviewed: Yes Subjective Interval history since last seen: at 7:40 Andreas called out to nursing stating she needed to have a bowel movement and that she was wet. At that time Melody Goran RN did VE that was 8-9/100%/-1 with thick meconium like stool noted. She was uncertain as to wether this was patient stool or possibly vaginal fluid and Pediatrics and I were notified of thick meconium fluid. I also gave report to Dr. Dupree who agrees that this does not change current management. I repeated exam at approximately 8am and broke a forebag of del cid that was clear with brown/old blood. Will continue to assume there could be meconium and continue to expect NVD. I have reviewed increased risks for shoulder dystocia and PPH with staff and patient/ again. KH Results Hemoglobin/Hematocrit: Hgb 12.6 g/dL (11.2-15.7) 12/18/22 23:39 Hct 36.1 % (36.0-46.0) 12/18/22 23:39 Abnormal Lab Findings: Abnormal Labs 12/18/22 23:39 WBC 11.84 H
--- NOTE | 2022-12-19 10:11 | OBVDS_ITS ---
Date of service: 12/19/22 Time of Service: 10:11 OB Labor/ Delivery Information Baby A Delivery Delivery Method: Spontaneaous Presentation: Cephalic Vertex Position: Left Occipital Anterior Cord Description-Baby A: 3 Vessels and Clamped/Cut Amniotic Fluid: Meconium Estimated Blood Loss: 350 Delivery Outcome: Liveborn Complications: none Infant Transferred: Remains with Mother Providers Nurse Retail Business Development Manager: Elana Herzog Nurse: Taylor Kapadia Nurse: Ebony Valentine Labor/Delivery Information Number of Babies in Womb: 1 Steroids Given: None Reason Steroids Not Administered: N/A Group Beta Strep: Positive Antibiotics Administered: Yes Number of Doses of Antibiotics: 3 Rubella Status: Immune Blood Type: O+ Varicella Immunity: Immune Shoulder Dystocia: No Note: Andreas presented in labor late on 12/18/22 at 4/80/-1. FHR tracing was CAT I and patient preferred epidural. She rested for a few hours after epidural and at 0400 on 12/19/22 was 4/80/-1 cervix mid position and contractions were less frequent. Pitocin augmentation was started and at 0905 she was 10cm 100% -1 with urge to push. ROM had occurred and mec stained fluid was noted. FHR tracing was CAT I and second stage huddle was held to review risk for shoulder dystocia and PPH with patient and both RN's. Marie pushed with excellent effort and delivered a live male over 2nd perineal laceration at 0943. Head delivered easily and shoulders and body followed quickly. Baby was placed skin to skin. Cord was clamped and cut at 5 minutes of life. 3 vessel cord noted. Pitocin was increased according to active management of third stage when baby delivered. Placenta delivered at 0949, via mantilla mechanism, intact. Fundus firmed with massage and IV pitocin. Lidocaine was injected into perineal laceration and it was repaired with 3 stitches of 3.0 chromic suture. QBL 350cc. sponge, needle and instrument count was correct. Baby peter Clayton will be breast fed. score 8 at 1 minute and 9 at 5 minutes. Weight 9lb 7oz. Expect normal PP course. Discharge to home in 24-48 hours. KH Stages of Labor Onset of Labor Date: 12/18/22 Onset of Labor Time: 03:00 Complete Dilatation Date: 12/19/22 Complete Dilatation Time: 09:05 Labor - Stage 1 Duration: 30 hours and 5 minutes ROM Baby A: 12/19/22 ROM Baby A: 08:10 Delivery Date-Baby A: 12/19/22 Infant Delivery Time-Baby A: 09:43 Labor Stage 2 Duration: 38 minutes Placenta Delivery Date-Baby A: 12/19/22 Placenta Delivery Time-Baby A: 09:49 Labor-Stage 3 Duration: 6 minutes Total Length of Labor-Baby A: 30 hours and 43 minutes Placenta Status: Delivered Baby A Gender: Male Gestational Age in Weeks/Days: 40 Weeks and 0 Days
[2022-12-19] MEDS: Oxytocin/Normal Saline 30 UNIT/500 ML BAG 167 UNITS IV (10:19)
[2022-12-19] MEDS: Ibuprofen 600 MG TAB PO (12:45)
[2022-12-19] MEDS: Acetaminophen 325 MG TAB 650 MG PO (12:45)
[2022-12-19] MEDS: Dibucaine 1% 28 GM TUBE TP (12:46)
[2022-12-19] MEDS: Hamamelis Leaf/Glycerin 100 EACH BOX PR (12:46)
[2022-12-19] MEDS: miSOPROStol 200 MCG TAB 400 MCG SL (14:30)
--- NOTE | 2022-12-19 17:22 | W.ANESPOSTOP ---
Postoperative Evaluation Date, Time and Location Date Performed: 12/19/22 Time Performed: 17:22 Patient Location: Obstetrics Vital Signs Most Recent Imported Vital Signs: Most Recent Vital Signs Temp Pulse Resp BP Pulse Ox 36.6 C 98 H 16 102/67 99 12/19/22 15:50 12/19/22 15:50 12/19/22 15:50 12/19/22 15:50 12/19/22 15:50 Assessment Mental Status: Awake (Alert & Oriented to Patient Baseline) Airway and Respiratory Function: Patent airway with normal (patient baseline) respiratory exam Cardiovascular Function: Hemodynamically Stable Hydration Status: Adequately Hydrated Nausea & Vomiting: No Nausea or Vomiting Pain: Pain is tolerable per patient Peripheral Nerve Block: Patient did not receive a nerve block Postoperative Comments:: Doing well, all epidural effects worn off.
[2022-12-20 00:05] VITALS: BP 88/55; PULSE 84; RESP 18
[2022-12-20 04:14] VITALS: BP 93/62; PULSE 84
[2022-12-20] MEDS: Acetaminophen 325 MG TAB 650 MG PO (07:40)
[2022-12-20] MEDS: Ibuprofen 600 MG TAB PO (07:40)
--- NOTE | 2022-12-20 07:46 | W.PM.OBPNV1 ---
Date of service: 12/20/22 Time of Service: 07:46 Assessment and Plan Assessment and plan (1) care following vaginal delivery: Status: Acute Assessment and plan: 1. Normal PP course. 2. Uterus is firm but at U or above and off to right. bimanual done, no clots expressed and lower uterine segment is also firm. Will get post void bladder scan done to ensure bladder is emptying 3. Consider discharge later today (2) Lactating mother: Status: Acute Assessment and plan: 1. Continue present management 2. Probable discharge later today if Pediatrics agrees. Subjective Subjective Interval history: Andreas is feeling well. Has minimal discomfort. Soaking pad every 2-3 hours. No clots. Voiding without difficulty. Would like to go home later today if possible. [place] baby status: Doing well, Nursing well (reports latch is improving each feeding) and Rooming in [place] feeding status: Exclusively breast feeding Exam Physical Exam Vital signs: Temp Pulse Resp BP Pulse Ox 98.3 F 84 18 93/62 L 99 12/19/22 20:00 12/20/22 04:14 12/20/22 00:05 12/20/22 04:14 12/19/22 15:50 Vital Signs Reviewed: Yes Constitutional Constitutional: no acute distress, average body habitus and cooperative HEENT Exam HEENT Exam: Normal Neck Exam Neck Exam: Normal (normal visual inspection) Breast Exam Bilateral: Breast Exam: Normal Nipple Exam: Normal Respiratory Exam Respiratory Exam: Normal Cardiovascular Exam Cardiovascular Exam: Normal Abdominal Exam Abdomen: Other (normal exam) Fundal Exam Fundus: Firm (bimanual exam demonstrates lower uterine segment is firm, uterus is above or at U, will get bladder scan post void to ensure she is emptying bladder) Comment: small lochia noted. Rectal Exam Rectal Exam: Not Done Exam Perineum: Normal and Repair Intact Extremities Exam Extremity Exam: Normal (denies calf tenderness) and Full ROM Back/Spine/Pelvis Exam Back Exam: Normal Skin Exam Skin Exam: Normal Neurological Exam Neurological Exam: Normal Psychiatric Exam Psychiatric Exam: Normal Results Hemoglobin/Hematocrit: Hgb 12.6 g/dL (11.2-15.7) 12/18/22 23:39 Hct 36.1 % (36.0-46.0) 12/18/22 23:39 Abnormal Lab Findings: Abnormal Labs 12/18/22 23:39 WBC 11.84 H
[2022-12-20 08:36] VITALS: BP 100/64; PULSE 90; RESP 16; TEMP 36.8; O2SAT 99
[2022-12-20 15:13] VITALS: BP 101/65; PULSE 90; RESP 16; TEMP 36.4
[2022-12-20 20:00] VITALS: BP 114/71; PULSE 108; RESP 18; TEMP 36.7
[2022-12-21] MEDS: Acetaminophen 325 MG TAB 650 MG PO (06:14)
[2022-12-21 07:45] VITALS: BP 118/78; PULSE 128; RESP 14; TEMP 36.9
--- NOTE | 2022-12-21 10:24 | W.PM.OBDISCH ---
Date of service: 12/21/22 Time of Service: 10:24 DS: Diagnosis Discharge Diagnosis (1) care following vaginal delivery: Status: Acute Asessment and Plan: Caring for baby independently. Pain is managed well with oral analgesics. Voiding without difficulty. well. A - stable mother and baby , Post day 2 P - Discharge to home today. Routine post instructions. [facility] (2) Lactating mother: Status: Acute Asessment and Plan: is going well and Tori has a feeding plan Discharge Plan Disposition Patient Disposition: Home Condition: Good Discharge Details Reason For Visit: Term Labor Admit Date/Time: 12/18/22 23:28 Admit Provider: Elana Herzog Attending Provider: Elana Herzog Primary Care Provider: Lindsay Hernandez Home Meds and New Rx's Prescriptions: No Action ferrous sulfate [Feosol] 325 mg (65 mg iron) tablet 325 mg PO DAILY Qty: 30 9RF aspirin [Adult Low Dose Aspirin] 81 mg tablet,delayed release (DR/EC) 81 mg PO DAILY Patient Comments: 08/29/22 pt alternates 81mg and 162mg prenat.vits,kathrine,[id number] Tablet 1 tab PO DAILY Discharge Instructions Stand Alone Forms: BC Instructions, BC Post Vaginal Deliver Activity:: Activity as Tolerated Equipment/Supplies:: No Equipment Needed Diet:: As Tolerated Discharge Orders Discharge Orders: Discharge Order (Routine); Ordered 12/21/22 Ordered By: Elana Benjamin OB:DS Summary Summary Vaginal Delivery Method: Spontaneaous Episiotomy Description: None Laceration Description: Perineal Laceration Extension: First Degree Contraception Discussed Contraception Discussed: Yes Contraceptive Plan: Foam/Condoms, [place] Infant Gender-Baby A: Male weight: 9 lb 6.973 oz Status at Discharge Functional status at discharge: independent ambulation Overall status at discharge: patient is back to baseline Mental Status: mental status grossly normal Speech and Movement: speech and movement normal Mood: congruent mood Affect: normal affect Exam Physical Exam Vital signs: Temp Pulse Resp BP Pulse Ox 98.4 F 128 H 14 118/78 99 12/21/22 07:45 12/21/22 07:45 12/21/22 07:45 12/21/22 07:45 12/20/22 08:36 Respiratory Exam Respiratory Exam: Normal Cardiovascular Exam Cardiovascular Exam: Normal Fundal Exam Fundus: Below Umbilicus Extremities Exam Extremity Exam: Normal Skin Exam Skin Exam: Normal Psychiatric Exam Psychiatric Exam: Normal PFSH All Active Problems (Updated 12/20/22 @ 07:50 by Elana Herzog CNM) Lactating mother (Acute) care following vaginal delivery (Acute) (Acute) Medical History (Updated 12/20/22 @ 07:50 by Elana Herzog CNM) Anemia affecting COVID-19 affecting in first trimester (~05/01/22) Delayed menses Group B Streptococcus carrier, +RV culture, currently Hx of gastritis Hx of iron deficiency anemia Irregular labor LGA (large for gestational age) fetus affecting management of mother Lower back pain Noted since wt loss, 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 Normal labor Pre-conception counseling Subcutaneous nodule of neck left side, palpable, soft, mobile .. Uses control Condoms currently, Hx injections (presumed depo-provera) .. Weight gain Two years in [place] with new , both relying on fast food. Surgical History Hx of pelvic surgery Laparoscopy for cyst removal, benign(?). PAP (-) .. All in [place]. Family History Paternal Grandfather Hypertension Stroke Father Hypertension Maternal Uncle Diabetes Paternal Grandmother Hypertension Paternal Uncle Schizophrenia Other Cancer Social History Smoking/Tobacco Use Status: Former Tobacco Use Smoking risk assessment performed?: Yes Alcohol Intake: current Alcohol Intake frequency: holidays/special occasions only Drug use: Never Substance use type: does not use Adopted: No Caregiver/Support person: No Foster care: No Household members: spouse Housing: apartment Number of Children: 0 Communication Needs: Language Barriers Education Level: college Details: Bachelor's Degree Do you need help understanding health information?: Rarely current occupation: [employer], [employer] Pets and animals: Yes Pets and animals: dog(s) Sexually active: Yes Do you think of yourself as: straight/heterosexual Current gender identity: female What is your relationship status?: How often do you talk on the phone with friends or family?: three or more times per week How often do you get together with friends or relatives?: once per week Do you belong to any clubs or organized social groups?: no Panel score (0-1 are the most socially isolated patients): 2 What type of physical activity do you participate in: none Daphnie/Mormon: Congregational Special daphnie needs: No Seatbelt use: always Helmet use: Yes Helmet use: always Drive intox or ride w/intox crude oil driver: No Do you feel safe at home: Yes Do you feel safe in your relationship?: Yes Female Reproductive History Menstrual control method: condoms History History 1 Para 0 Hx # Term Pregnancies 0 Multiple births 0 Hx # Pregnancies 0 Ectopic pregnancies 0 AB induced 0 Hx Number of Living Children 0 AB spontaneous 0 DS: Data Vitals/I&O Vitals and I&O: Vital Signs Temperature 98.4 F 12/21/22 07:45 Temperature 98.2 F 12/19/22 01:12 Temperature Source Oral 12/21/22 07:45 Pulse 128 H 12/21/22 07:45 Pulse 84 12/19/22 01:12 Pulse Rhythm Regular 12/21/22 07:45 Respiratory Rate 14 12/21/22 07:45 Respiratory Depth Normal 12/20/22 08:29 Blood Pressure 118/78 12/21/22 07:45 Blood Pressure 127/74 12/19/22 01:12 Blood Pressure Mean 91 12/21/22 07:45 Pulse Oximetry 99 12/20/22 08:36 Pain Level 1 12/21/22 07:45 Comment per prior RN Pts baseline BP is low, pt denies hypotension sx. 12/19/22 07:53 Intake & Output 12/20/22 12/20/22 12/21/22 11:59 23:59 11:59 Other: Urine Color Yellow Pale
== END 2022-12-21 10:55 | disposition home or self-care (01) | DRG 807 ==
LOC: OBS 12-19 00:37 → BCD 12-19 09:59
PROVIDERS: Admitting Provider Advanced Practice Midwife; PCP Nurse Practitioner; Visit Provider Advanced Practice Midwife
DX: O36.63X0 Maternal care for excessive fetal growth, third trimester, not applicable or unspecified; Z37.0 Single live birth; O99.824 Streptococcus B carrier state complicating childbirth; Z3A.40 40 weeks gestation of pregnancy; O70.1 Second degree perineal laceration during delivery; O99.02 Anemia complicating childbirth; D64.9 Anemia, unspecified; O99.62 Diseases of the digestive system complicating childbirth; O99.844 Bariatric surgery status complicating childbirth; K59.00 Constipation, unspecified; M54.50 Low back pain, unspecified; O75.89 Other specified complications of labor and delivery
CPT/HCPCS: 36415; 85027; 86850; 86900; 86901; 59025; J2540

== ENCOUNTER 2023-09-11 08:18 | Outpatient (CLI) | payer OTHER, SELFPAY ==
[2023-09-11 16:14] LABS: HCG Quant, Pregnancy 170 mIU/mL (1-3)
== END 2023-09-11 08:19 ==
LOC: LBO 09-12 08:19
PROVIDERS: PCP Nurse Practitioner; Visit Provider Advanced Practice Midwife
DX: N92.6 Irregular menstruation, unspecified (principal)
CPT/HCPCS: 36415; 84702

== ENCOUNTER 2023-09-13 12:52 | Outpatient (CLI) | payer OTHER, SELFPAY ==
[2023-09-13 13:03] LABS: HCG Quant, Pregnancy 409 mIU/mL (1-3)
== END 2023-09-13 12:53 | disposition home or self-care (01) ==
LOC: LBO 12:52
PROVIDERS: PCP Nurse Practitioner; Visit Provider Advanced Practice Midwife
DX: N92.6 Irregular menstruation, unspecified (principal)
CPT/HCPCS: 36415; 84702

== ENCOUNTER 2023-10-27 01:07 | Outpatient (CLI) | payer OTHER, SELFPAY ==
[2023-10-27 14:44] LABS: Panorama Kit Sent via Fed Ex
[2023-10-27 14:50] LABS: Abs Immature Grans 0.02 10^3/uL (0.0-0.06); Absolute Basophil Count 0.04 10^3/uL (0.0-0.2); Absolute Eosinophil Count 0.15 10^3/uL (0.0-0.7); Absolute Lymphocyte Count 2.08 10^3/uL (1.2-3.4); Absolute Monocyte Count 0.36 10^3/uL (0.1-0.8); Absolute Neutrophil Count 6.33 10^3/uL (1.2-6.7); Basophils % 0.4; Eosinophils % 1.7; HCT 35.8 % (36.0-46.0); HGB 12.1 g/dL (11.2-15.7); Immature Grans % 0.2; Lymphocytes % 23.2; MCH 29.2 pg (27.0-33.0); MCHC 33.8 % (32.0-36.0); MCV 87 fL (80-95); MPV 8.7 fL (8.0-11.0); Neutrophils % 70.5; Platelet Count 324 10^3/uL (130-400); RBC 4.14 10^6/uL (3.93-5.22); RDW 12.6 % (11.7-14.6); RDW-SD 39.9 fL; WBC 8.98 10^3/uL (4.4-10.8)
[2023-10-27 14:59] LABS: Glucose,1 Hr (Glucola) 123 mg/dL (80-140)
[2023-10-27 15:52] LABS: TSH (W/Ref FT4) 1.19 uIU/mL (0.36-3.74)
[2023-10-27 23:07] LABS: Hepatitis B Surface Ag Negative (Negative)
[2023-10-27 23:14] LABS: HIV-1/2 Ag & Ab Screen Negative (Negative)
[2023-10-27 23:40] LABS: Hepatitis C Ab w Rflx HCV PCR Negative (Negative)
[2023-10-30 12:19] LABS: Varicella IgG Antibody Positive (See Note)
[2023-10-30 12:22] LABS: Rubella IgG Ab (UVM) Positive (See Note)
[2023-10-30 21:46] LABS: Syphilis IgG w/Reflex Nonreactive (Nonreactive)
== END 2023-10-27 01:08 | disposition home or self-care (01) ==
PROVIDERS: PCP Nurse Practitioner; Visit Provider Advanced Practice Midwife
DX: Z34.91 Encounter for supervision of normal pregnancy, unspecified, first trimester (principal)
CPT/HCPCS: 36415; 82950; 86787; 86803; 86850; 86900; 86901; 87340; 87389; 84443; 85025; 86762; 86780

== ENCOUNTER 2023-10-27 14:19 | Outpatient (REF) | payer OTHER, SELFPAY ==
[2023-10-29 13:35] LABS: Chlamydia Result Negative (Negative); GC Result Negative (Negative)
== END 2023-10-27 14:20 | disposition home or self-care (01) ==
LOC: LBN 14:19
PROVIDERS: PCP Nurse Practitioner; Visit Provider Advanced Practice Midwife
DX: Z34.91 Encounter for supervision of normal pregnancy, unspecified, first trimester (principal); Z11.3 Encounter for screening for infections with a predominantly sexual mode of transmission; Z3A.11 11 weeks gestation of pregnancy
CPT/HCPCS: 87491; 87591; 87086

== ENCOUNTER 2024-02-21 02:55 | Outpatient (CLI) | payer OTHER, SELFPAY ==
[2024-02-21 09:32] LABS: HGB 10.4 g/dL (11.2-15.7); MCH 29.1 pg (27.0-33.0); MCHC 33.5 % (32.0-36.0); MCV 87 fL (80-95); MPV 8.5 fL (8.0-11.0); Platelet Count 282 10^3/uL (130-400); RBC 3.57 10^6/uL (3.93-5.22); RDW 12.9 % (11.7-14.6); RDW-SD 40.7 fL; WBC 7.08 10^3/uL (4.4-10.8)
[2024-02-21 09:41] LABS: Glucose,1 Hr (Glucola) 129 mg/dL (80-140)
[2024-02-21 09:47] LABS: ALT 16 U/L (14-59); AST 14 U/L (15-37); Albumin 2.8 g/dL (3.4-5.0); Alkaline Phosphatase 82 U/L (46-116); Anion Gap 8.1 mmol/L (3-11); BUN 4 mg/dL (7-18); Bilirubin, Total 0.29 mg/dL (0.2-1.0); CO2 22.9 mmol/L (21.0-32.0); CREATININE 0.5 mg/dL (0.55-1.02); Calcium 8.4 mg/dL (8.5-10.1); Chloride 104 mmol/L (98-107); Estimated GFR 130.12 (mL/min/1.73m2); Glucose 128 mg/dL (74-106); Potassium 3.4 mmol/L (3.5-5.1); Sodium 135 mmol/L (136-145)
[2024-02-21 12:07] LABS: Lab Add On Test DONE
[2024-02-21 12:44] LABS: Ferritin 7 ng/mL (8-252); Vitamin D 25 Total 25.2 ng/mL (30-100)
== END 2024-02-21 02:56 | disposition home or self-care (01) ==
LOC: LBO 02:55
PROVIDERS: Advanced Practice Midwife; PCP Nurse Practitioner; Visit Provider Advanced Practice Midwife
DX: Z34.92 Encounter for supervision of normal pregnancy, unspecified, second trimester (principal); Z98.84 Bariatric surgery status; Z86.2 Personal history of diseases of the blood and blood-forming organs and certain disorders involving the immune mechanism
CPT/HCPCS: 36415; 80053; 82306; 82950; 85027; 82728

== ENCOUNTER 2024-03-20 02:12 | Outpatient (CLI) | payer OTHER, SELFPAY ==
--- NOTE | 2024-03-20 07:05 | DI.US_ITS ---
Exam(s) US OB ELVIS WEIGHT EXAM: US OB ELVIS WEIGHT CLINICAL HISTORY: ,h/o gastric bypass,z98.84,z34.90. TECHNIQUE: Transabdominal obstetrical ultrasound performed. COMPARISON: US US OB 2-3 TRIMESTER from 12/26/2023 US US OB F/U FACIAL/LVOT/RVOT from 01/02/2024 FINDINGS:: Number of fetuses: 1 position: Cephalic Placental location: Anterior. No evidence of previa. BIOMETRIC DATA: BPD: 82, 33+1 weeks HC: 300, 33+4 weeks AC: 274 , 31+3 weeks FL: 66, 33+ 6 weeks EFW: 1993, 66 percentile, Composite Age: 33+ 0 weeks CRYSTAL: 08 May 2024 Heart Rate: 142 Amniotic fluid index: 16.3. Visually, amount of fluid is within normal limits. IMPRESSION: Fetus is measuring slightly large for dates. weight is within normal limits. Normal ELVIS. DATA REPOSITORY:
== END 2024-03-20 02:32 ==
LOC: DI 02:12
PROVIDERS: PCP Nurse Practitioner; Visit Provider Advanced Practice Midwife
DX: Z34.93 Encounter for supervision of normal pregnancy, unspecified, third trimester (principal); Z98.84 Bariatric surgery status; Z3A.31 31 weeks gestation of pregnancy
CPT/HCPCS: 76816

== ENCOUNTER 2024-03-20 09:16 | Outpatient (REF) | payer OTHER, SELFPAY | END 2024-03-20 09:17 | disposition home or self-care (01) | LOC: LBN 09:16 | PROVIDERS: PCP Nurse Practitioner; Visit Provider Advanced Practice Midwife | DX: Z34.93 Encounter for supervision of normal pregnancy, unspecified, third trimester (principal) | CPT/HCPCS: 87480; 87510; 87660 ==

== ENCOUNTER 2024-04-19 09:50 | Outpatient (REF) | payer OTHER, SELFPAY | END 2024-04-19 09:51 | disposition home or self-care (01) | LOC: LBN 09:50 | PROVIDERS: PCP Nurse Practitioner; Visit Provider Advanced Practice Midwife | DX: Z34.93 Encounter for supervision of normal pregnancy, unspecified, third trimester (principal) | CPT/HCPCS: 87081 ==

== ENCOUNTER 2024-05-10 09:31 | Outpatient (REF) | payer OTHER, SELFPAY | END 2024-05-10 09:32 | disposition home or self-care (01) | LOC: LBN 09:31 | PROVIDERS: PCP Nurse Practitioner; Visit Provider Advanced Practice Midwife | DX: Z34.93 Encounter for supervision of normal pregnancy, unspecified, third trimester (principal); Z3A.39 39 weeks gestation of pregnancy | CPT/HCPCS: 87081 ==

== ENCOUNTER 2024-05-16 10:55 | Outpatient (CLI) | payer OTHER, SELFPAY ==
[2024-05-16 11:15] VITALS: BP 115/58; PULSE 77
[2024-05-16 11:17] VITALS: BP 115/58; PULSE 77
[2024-05-16 12:00] VITALS: BP 115/58; PULSE 77
[2024-05-16 12:22] LABS: ROM Plus Negative
--- NOTE | 2024-05-16 15:53 | W.OBNST ---
Date of service: 05/16/24 Time of Service: 15:53 NST Evaluation Reason for NST Reasons for Nonstress Test: DECREASED MOVEMENT Gestational Age Gestational Age in Weeks and Days: 39 Weeks and 6Days Test and Monitor Explained Test/Monitor Explained: Test Explained, Monitor Explained and Patient Verbalized Understanding Vital Signs Blood Pressure: 115/58 Pulse: 77 NST Information Date on Monitor: 05/16/24 Time on Monitor: 11:10 Date off Monitor: 05/16/24 Time off Monitor: 11:56 Total Time on Monitor: 46 NST Interventions: PO Hydration NST Evaluation Patient States Movement: Decreased FHR Baseline: 145 Variability: Moderate 6-25 bpm Accelerations: 15x15 Decelerations: Variable NST Results: Reactive Note Ultrasound Done: N/A. NST Note Note: NSt reactive. fetus is active but Stefannie is unable to perceive movement. Occasional contractions noted. RTO in 5 days for visit. Signs of labor reviewed. NST Reviewed and Verified by: Elana Benjamin
[2024-05-16 15:54] VITALS: BP 115/58; PULSE 77
== END 2024-05-16 12:00 | disposition home or self-care (01) ==
LOC: BCD 11:02 → OBS 11:13
PROVIDERS: PCP Nurse Practitioner; Visit Provider Advanced Practice Midwife
DX: O36.8130 Decreased fetal movements, third trimester, not applicable or unspecified (principal); Z3A.39 39 weeks gestation of pregnancy
CPT/HCPCS: 59025; 84112; 87480; 87510; 87660

== ENCOUNTER 2024-05-19 07:28 | Inpatient (IN) | payer OTHER, SELFPAY ==
[2024-05-19] VITALS (312 sets, daily range): BP systolic 65–189; BP diastolic 39–86; PULSE 0–133; RESP 18–20; TEMP 36.5–37.2; O2SAT 93–100; BMI 37.4
--- NOTE | 2024-05-19 07:38 | HPE_ITS ---
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 CRYSTAL Calculator Estimated Delivery Date Method Current WG Current Estimate 05/17/24 Ultrasound #1 40w 2d Other Estimates 05/06/24 LMP (Certain) 41w 6d History of Present Expected Delivery Route/Plan - CNM FOB/ - [place] (2nd child together) BB yes to circ (on 2nd day) Plans epidural for childbirth GBS negative (?repeat at 38 wks by pt request) GBS repeated 05/10-Negative as well Specific Issues/Plan 1. BMI 32 & macrosomia, early [id number], 28 weeks - 129. 2. Close pregnancies, conception @ 7-8 mo PP 3. Hx gastric banding done 2020 4. Hx depression and PPD, was taking sertraline but stopped 4a. PQH9 score=7, may restart sertraline @ 36 wks or sooner 4b. Declines referral to [facility], is familiar and will request prn 5. 5P screen negative. Known CF/SMA negative, cfDNA low risk x5 male 6. Mild anemia @ 27 wks, start iron tabs daily, Hgb 10.4 at 36 weeks 7. Vit D deficient, start Vit D supplement (2,000-5,000 u/day) 8. Heartburn and nausea - protonix escribed with instructions. 9. 05/16- Bacterial vaginosis - metronidazole escribed x 7 days Assessment: History Reviewed & Current Informed Consent Informed Consent: Regional Anesthesia and Risk,Benefits,Alternatives Discussed (Pt aware of possible need for AROM and pitocin augmentation) Review of Systems Narrative: ROS completed and noncontributory other than HPI PFSH All Active Problems (Updated 05/19/24 @ 07:44 by Blanca Godinez) Normal labor (Acute) Hx of iron deficiency anemia (Acute) History of macrosomia in infant in prior , currently (Acute) Body mass index [BMI] 32.0-32.9, adult (Acute) (Acute) Post depression (Acute) Anxiety as acute reaction to gross stress (Acute) Medical History (Updated 05/19/24 @ 07:44 by Blanca Godinez) Reaction, situational, acute, to stress care following vaginal delivery COVID (~07/13/23) LGA (large for gestational age) fetus affecting management of mother Group B Streptococcus carrier, +RV culture, currently Anemia affecting Lower back pain Noted since wt loss, 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 Hx of gastritis Weight gain Two years in [place] with new , both relying on fast food. Subcutaneous nodule of neck left side, palpable, soft, mobile .. Surgical History Hx of pelvic surgery Laparoscopy for cyst removal, benign(?). PAP (-) .. All in [place]. Family History Paternal Grandfather Hypertension Stroke Father Hypertension Maternal Uncle Diabetes Paternal Grandmother Hypertension Paternal Uncle Schizophrenia Other Cancer Social History Smoking/Tobacco Use Status: Former Tobacco Use Smoking risk assessment performed?: Yes Alcohol Intake: current Alcohol Intake frequency: holidays/special occasions only Drug use: Never Substance use type: does not use Adopted: No Caregiver/Support person: No Foster care: No Household members: spouse Housing: apartment Number of Children: 0 Communication Needs: Language Barriers Education Level: college Details: Bachelor's Degree Do you need help understanding health information?: Rarely 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, [employer] Pets and animals: Yes Pets and animals: dog(s) Sexually active: Yes Do you think of yourself as: straight/heterosexual Current gender identity: female What is your relationship status?: How often do you talk on the phone with friends or family?: three or more times per week How often do you get together with friends or relatives?: once per week Do you belong to any clubs or organized social groups?: no Panel score (0-1 are the most socially isolated patients): 2 What type of physical activity do you participate in: none Daphnie/Yazidism: Orthodox Special daphnie needs: No Seatbelt use: always Helmet use: Yes Helmet use: always Drive intox or ride w/intox racecar driver: No Do you feel safe at home: Yes Do you feel safe in your relationship?: Yes Female Reproductive History Menstrual control method: condoms History History 2 Para 1 Hx # Term Pregnancies 1 Multiple births 0 Hx # Pregnancies 0 Ectopic pregnancies 0 AB induced 0 Hx Number of Living Children 1 AB spontaneous 0 Past Pregnancies Del. Date GA/Weeks # Preg Succ Route Wgt Sex Labor Lgth Anesth esia Location [facility] 12/19/22 40 No Yes vaginal 9 lb [address] [facility] Khurram Baumannman DAMARIS Delivery Date: 12/19/22 Last Updated by: Elana Benjamin CNM Spont labor, epidural, pit aug, 2nd degree lac, [place], pos. GBS Meds Allergies and Home Medications Allergies Allergy/AdvReac Type Severity Reaction Status Date / Time No Known Allergies Allergy Verified 05/16/24 10:20 Home Medications ?Medication ?Instructions ?Recorded ?Confirmed ?Type PNV 153-FA 400 mcg-om3 35 mg-dha 1 tab PO DAILY #90 tabs 11/24/23 04/26/24 Rx 25 mg-epa 5 mg-fish oil chew tablet ( Gummies) ferrous sulfate 325 mg (65 mg 325 mg PO DAILY #30 tabs 02/21/24 04/26/24 Rx iron) tablet,delayed release pantoprazole 40 mg tablet,delayed 40 mg PO DAILY #30 tabs 03/06/24 04/26/24 Rx release (Protonix) metronidazole 500 mg tablet 500 mg PO BID #14 tabs 05/16/24 Rx Exam Physical Exam Vital signs: Pulse BP 114 H 96/61 L 05/19/24 07:18 05/19/24 07:17 Vital Signs Reviewed: Yes Constitutional Constitutional: mild distress, average body habitus and cooperative Detailed Labor and Delivery Exam Dilation: 4 Effacement (%): 90 station: -2 Cervix position: mid Consistency: medium LUIS Score(Cervical Ripeness Score): 8 Amniotic Membrane Status: Intact (forebag palpable) Contraction Frequency(min): q5-7 Contraction Intensity: Mild/Moderate Fetus A Heart Rate Baseline: 135 Monitor Accelerations: 15 X 15 Monitor Decelerations: None Variability: Moderate (6-25 BPM) Categories: Category I Est. Weight: 8 lb 6.041 oz Est. Weight: 3800 gms HEENT Exam HEENT Exam: Normal Neck Exam Neck Exam: Normal Chest/Brest/Axilla Exam Chest Exam: Normal Breast Exam Breast Exam: Not Done Respiratory Exam Respiratory Exam: Normal Cardiovascular Exam Cardiovascular Exam: Normal Abdominal Exam Abdominal Exam: Normal (Gravid, nontender) Rectal Exam Rectal Exam: Normal Exam Exam: Normal Extremities Exam Extremities Exam: Normal Back/Spine/Pelvis Exam Back Exam: Normal Pelvis Adequate: Yes Skin Exam Skin Exam: Normal Neurological Exam Neurological Exam: Normal Psychiatric Exam Psychiatric Exam: Normal Results Results Group Beta Strep: Negative (tested twice) Blood Type: O+ Rubella Status: Immune Varicella Immunity: Immune Lab Results: 28 wk glucola 123 Risk Assessment Risk for Shoulder Dystocia Historical/Initial OB: POSITIVE FOR: Pre- BMI>30; NEGATIVE FOR: Pelvic Abnormality, Previous Shoulder Dystocia or Previous Macrosomia 36 Weeks: NEGATIVE FOR: Current Gestational DM, EFW>4500gms or Maternal Weight Gain>40lbs 40 Weeks: NEGATIVE FOR: EFW> 4500 gms, Maternal Weight Gain >40lb or Post Dates Increased Risk?: No Counseling: proven to 9 lbs Delivery Plan @ 36wks: Delivery Plan @ 40 wks: Risk for Pre-Eclampsia Daily Dose ASA Indicated: No Date Initiated/Initials: not indicated. JK Yes, if one or more: NEGATIVE FOR: Hx Pre-E/Gest HTN, Chronic HTN, Multiple Gestation, Pre-gestational DM, Renal Disease, Systemic Lupus or APA Syndrome Yes, if 2 or more: POSITIVE FOR: BMI>30; NEGATIVE FOR: Nulliparity, Age>= 35 yrs, >10yr btwn pregnancies, ethinicty, Mother/Sister w/ Pre-E or Previous IUGR Risk for Post- Hemorrhage Initial: NEGATIVE FOR: Multiple Gestation, Previous PPH, Known Clotting Deficiency, Grand Multiparity or Anticoagulation 36 Weeks: NEGATIVE FOR: Anemia, hgb<10, Low platelets(thrombocytopenia), Gestational HTN or Pre-E, Polyhydraminios or EFW>4500gms 40 Weeks: NEGATIVE FOR: Anemia, hgb<10, Low platelets (thrombocytopenia), Gestation HTN or Pre-E, Polyhydraminios or EFW>4500gms At Risk?: No Counseled re: Active Management: Yes Risks Reviewed Risks Reviewed Upon Admission: Yes
[2024-05-19 07:50] LABS: HCT 36.9 % (36.0-46.0); HGB 12.1 g/dL (11.2-15.7); MCH 28.1 pg (27.0-33.0); MCHC 32.8 % (32.0-36.0); MCV 86 fL (80-95); MPV 8.9 fL (8.0-11.0); Platelet Count 274 10^3/uL (130-400); RDW 14.5 % (11.7-14.6); RDW-SD 44.7 fL; WBC 10.52 10^3/uL (4.4-10.8)
--- NOTE | 2024-05-19 08:02 | ANES.PREOP_ITS ---
General Info Date of Service Date Performed: 05/19/24 Height: 5 ft 5 in Weight: 102.06 kg Body Mass Index (BMI): 37.4 Meds Allergies and Home Medications Allergies Allergy/AdvReac Type Severity Reaction Status Date / Time No Known Allergies Allergy Verified 05/16/24 10:20 Home Medication ?Medication ?Instructions ?Recorded PNV 153-FA 400 mcg-om3 35 mg-dha 1 tab PO DAILY #90 tabs 11/24/23 25 mg-epa 5 mg-fish oil chew tablet ( Gummies) ferrous sulfate 325 mg (65 mg 325 mg PO DAILY #30 tabs 02/21/24 iron) tablet,delayed release pantoprazole 40 mg tablet,delayed 40 mg PO DAILY #30 tabs 03/06/24 release (Protonix) metronidazole 500 mg tablet 500 mg PO BID #14 tabs 05/16/24 Current Visit Medications: Current Medications Generic Name Dose Route Start Last Admin Trade Name Freq PRN Reason Stop Dose Admin IV Miscellaneous Supplies 1 each 05/19/24 07:30 Iv Access IV DIRECTED CHARITY Sodium Chloride 0 ml 05/19/24 07:28 Normal Saline Flush 10 Ml Syr IVP PRN PRN Sodium Chloride 0 ml 05/19/24 08:30 Normal Saline Flush 10 Ml Syr IVP BID CHARITY Sodium Chloride 0 ml 05/19/24 07:28 Normal Saline 10 Ml Vial IJ DIRECTED PRN PFSH Active Problems Active Problems: Problem Status Onset Code Normal labor Acute O80, Z37.9 Hx of iron deficiency anemia Acute Z86.2 History of macrosomia in in prior , currently Acute O09.299 Body mass index [BMI] 32.0-32.9, adult Acute Z68.32 Acute Z34.90 Post depression Acute F53.0 Anxiety as acute reaction to gross stress Acute F41.1, F43.0 Hx of laparoscopic gastric banding Resolved Z98.84 Medical History Medical History (Updated 05/19/24 @ 07:44 by Blanca Godinez) Reaction, situational, acute, to stress care following vaginal delivery COVID (~07/13/23) LGA (large for gestational age) fetus affecting management of mother Group B Streptococcus carrier, +RV culture, currently Anemia affecting Lower back pain Noted since wt loss, 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 Hx of gastritis Weight gain Two years in [place] , both relying on fast food. Subcutaneous nodule of neck left side, palpable, soft, mobile .. Surgical History Surgical History Hx of pelvic surgery Laparoscopy for cyst removal, benign(?). PAP (-) .. All in [place]. Tobacco Smoking/Tobacco Use Status: Former Tobacco Use Alcohol Alcohol Intake: current Alcohol intake frequency: holidays/special occasions only Substance Use Substance use: Never Substance use type: does not use Prental History History 2 2 Para 1 Hx # Term Pregnancies 1 Multiple births 0 Hx # Pregnancies 0 Ectopic pregnancies 0 AB induced 0 Hx Number of Living Children 1 AB spontaneous 0 Past Pregnancies Del. Date GA/Weeks # Preg Succ Route Wgt Sex Labor Lgth Anesth esia Location [facility] 12/19/22 40 No Yes vaginal 4280.778 g Male [facility] Amish Herzog CNM Delivery Date: 12/19/22 Last Updated by: Elana Benjamin CNM Spont labor, epidural, pit aug, 2nd degree lac, [place], pos. GBS Vital Signs and Lab Results Vital Signs Most Recent Vital Signs in EMR: Most Recent Vital Signs Pulse BP 114 H 96/61 L 05/19/24 07:18 05/19/24 07:17 Lab Results 05/19/24 07:40 Blood Type / Crossmatch: 2 Antibody Screen NEGATIVE 05/19/24 Complete Blood Count: 2 White Blood Count 10.52 10^3/uL (4.4-10.8) 05/19/24 07:40 Red Blood Count 4.30 10^6/uL (3.93-5.22) 05/19/24 07:40 Hemoglobin 12.1 g/dL (11.2-15.7) 05/19/24 07:40 Hematocrit 36.9 % (36.0-46.0) 05/19/24 07:40 Platelet Count 274 10^3/uL (130-400) 05/19/24 07:40 Complete Metabolic Panel: 2 No Data to Display Liver Function Panel: 2 No Data to Display Coagulation Panel: 2 No Data to Display Cardiac Panel: 2 No Data to Display Arterial Blood Gas: 2 No Data to Display Venous Blood Gas: 2 No Data to Display Pancreas Panel: 2 No Data to Display Thyroid Panel: 2 No Data to Display Infectious Disease: 2 No Data to Display Blood Cultures: 2 No Data to Display Toxicology Panel: 2 No Data to Display Panel: 2 No Data to Display Anesthesia Assessment and Plan Anesthesia History Personal History: No History of Anesthesia Complications Family History: No Family History of Anesthesia Complications Exercise Tolerance Exercise Tolerance: Metabolic Equivalents>4 Cardiac & Pulmonary Exam Cardiac Exam: Normal S1/S2 Heart Sounds Pulmonary Exam: Clear Bilateral Breath Sounds Implantable Cardiac Device Does patient have a Pacemaker or an ICD?: No Airway Exam Known Difficult Airway: No Mallampati Class: 4 Mouth Opening: Narrow (< 3cm) Thyromental Distance: Greater than 3 cm Neck Range of Motion: Full ROM Neck Circumference: Normal Teeth Condition: Normal Dentition ASA Classification ASA Score: ASA 2 Emergency Case?: No NPO Status NPO Status: Full Stomach Status Status: Confirmed Anesthesia Plan Resuscitation Status: Full Code Anesthesia Technique: Epidural Anesthesia Airway Planned: Natural Airway Pain Management: Epidural Monitors Used: Standard Monitors Preoperative Comments:: 28 yo female at 40 weeks requesting labor analgesia. Currently 4 cm, 90%. Sig PMHx: gastritis/GERD (protonix), anemia, anxiety/depression, former smoker. plt: 274 Previous Anes: - epidural, YURI at 6 cm, catheter placed to 11. States that it worked well.
[2024-05-19] MEDS: FentaNYL/ROPIvacaine 2 mcg/ml and 0.1% 200 ML CADD Cassette EP (08:59)
[2024-05-19] MEDS: Lactated Ringers 250 ML 1000 ML IV (09:22)
[2024-05-19] MEDS: Lactated Ringers 1,000 ML 125 ML IV (10:00)
--- NOTE | 2024-05-19 10:02 | W.ANESNEU ---
Epidural/Spinal Catheter Date Performed: 05/19/24 Procedure Start: 08:31 Procedure Stop: 08:42 Requesting Provider: Blanca Godinez Procedure Location: Obstetrics Reason Performed: Labor Epidural Standard Monitors Applied: Blood Pressure and SpO2 Patient Position: Sitting Sedation Given (Indicate Dose Given): No Sedation given Patient Mental Status: Awake Sterility: Hand Hygiene, Surgical Cap, Surgical Mask, Sterile Gloves, Sterile Drape/Sheet and Chlorhexidine Procedure Location: L2-L3 Interspace Epidural Needle: Tuohy 17 Guage Needle Length: 3.5 Inch Needle Approach: Midline Epidural Procedure: 1% Lidocaine to skin and subcutaneous tissue with 25G needle and YURI to Saline Used Catheter Placed?: Catheter Placed (wire reinforced. ) Test Dose (Indicate Dose Given): 3ml 1.5% Lidocaine with 1:200K Epinephrine Given Loss of Resistance Depth (cm): 7 Catheter depth at skin (cm): 13 Dressing: [place]av[place] Dressing Placed, Mastisol Used and Dressing reinforced with Tape Epidural Provider Bolus (Indicate Dose Given): None Given Additives (Indicate Dose Given ): None Infusion Medication: Medication Infusion Began Medication Infusion: Ropivacaine 0.1% with Fentanyl 2mcg/ml Maintenance Infusion Rate (ml/hour): 10 PCEA Bolus Dose (ml): 5 Block Level: N/A Paresthesia: None Ultrasound: Used to lindsey site Number of Attempts (See previous attempts in note section): 1 Procedure Tolerated: No Complications Procedure Outcome: Successful Procedure Comment:: Back marked with US. Difficulty with keeping position, multiple redirects with in the same space. Just before test dose pushed pt mentioned that she felt hot. Once test dose in, no signs or symptoms of intravascular or intrathecal catheter placement. She continued to endorse being hot, and now clammy. HR unchanged, but BP decreased. Given the negative test dose (no ringing in ears, metallic taste, legs heavy/numb) and no blood or CSF return with gentle aspiration her clammyness, feeling hot, and now decreased BP was though to be due to vasovagal event. A fluid bolus was started along with ephedrine 10 mg x 2, and phenylephrine 80 mcg x 1 was given. After resolution of hypotension the fluid was turned down to her maintenance rate, and she received ~ 200 mL bolus during the event. The epidural pump was then started up (after confirmation of negative aspiration of CSF/blood), but no bolus/loading dose was provided. Performed By: Mahesh Chahal
[2024-05-19] MEDS: Acetaminophen 500 MG TAB 1000 MG PO (11:33)
[2024-05-19] MEDS: Oxytocin/Normal Saline 30 UNIT/500 ML BAG 2 UNITS IV (13:32)
--- NOTE | 2024-05-19 13:37 | W.PM.OBNL1 ---
Date of service: 05/19/24 Time of Service: 13:37 Informed Consent Informed Consent: Augmentation of Labor and Risk,Benefits,Alternatives Discussed (Pt aware of possible need for AROM and pitocin augmentation) Pelvic Exam Dilation: 6 Effacement (%): 100 station: -2 Cervix Position: mid Consistency: soft Contractions Monitor Mode: External Contraction Frequency(min): q8-10 Intensity: Moderate Fetus A Monitor: External (US) Heart Rate Baseline: 135 Presentation: Cephalic Variability: Moderate (6-25 BPM) Categories: Category I Accelerations: Present Decelerations: None Amniotic Membrane Status: Ruptured Rupture Method: Artifical Amniotic Fluid: Meconium Date of Membrane Rupture: 05/19/24 Time of Membrane Rupture: 09:50 Assessment and Plan Assessment and plan (1) Normal labor: Status: Acute Assessment and plan: A: Epidural anesthesia, inadequate contraction pattern Category 1 tracing, AROM x3 hrs, meconium stained fluid P: Pt consents to pitocin augmentation Dr. Khan updated on pt status, anticipate Objective Temp Pulse Resp BP Pulse Ox 99.0 F 87 18 110/70 100 05/19/24 12:31 05/19/24 13:35 05/19/24 11:00 05/19/24 13:19 05/19/24 13:35 Laboratory Results WBC 10.52 10^3/uL (4.4-10.8) 05/19/24 07:40 RBC 4.30 10^6/uL (3.93-5.22) 05/19/24 07:40 Hgb 12.1 g/dL (11.2-15.7) 05/19/24 07:40 Hct 36.9 % (36.0-46.0) 05/19/24 07:40 MCV 86 fL (80-95) 05/19/24 07:40 MCH 28.1 pg (27.0-33.0) 05/19/24 07:40 MCHC 32.8 % (32.0-36.0) 05/19/24 07:40 RDW 14.5 % (11.7-14.6) 05/19/24 07:40 Plt Count 274 10^3/uL (130-400) 05/19/24 07:40 MPV 8.9 fL (8.0-11.0) 05/19/24 07:40 ABO/Rh O Positive 05/19/24 07:40 Antibody Screen NEGATIVE 05/19/24 07:40 Vital Signs Reviewed: Yes Objective Narrative Objective Narrative: Pt's BP stable after fluid bolus, she is relaxing and appears comfortable Subjective Interval history since last seen: Pt feels comfortable.
[2024-05-19] MEDS: Normal Saline Flush 10 ML SYR IVP (13:42)
[2024-05-19] MEDS: Oxytocin/Normal Saline 30 UNIT/500 ML BAG 95 UNITS IV (16:09)
--- NOTE | 2024-05-19 16:27 | W.OBDELIVERY ---
Date of service: 05/19/24 Time of Service: 16:27 OB Labor/ Delivery Information Baby A Delivery Delivery Method: Spontaneaous Presentation: Cephalic Cephalic Position: Vertex Vertex Position: Right Occipital Anterior Breech Position: N/A Cord Description-Baby A: 3 Vessels, Nuchal Cord (loose, baby delivered through loop) and Clamped/Cut Amniotic Fluid: Meconium Estimated Blood Loss: 200 QBL Delivery Outcome: Liveborn Transferred: Remains with Mother Note: Pitocin augmentation at 4 u/min with contractions q2-3 min, category 1 tracing and pt becoming increasingly uncomfortable with rectal pressure. SVE found her fully with vtx +3, 2nd stage huddle completed, excellent maternal efforts result in of vigorous male over intact perineum, loose nuchal cord noted and slipped over anterior shoulder as 's body emerged, infant to mother's arms immediately for drying. Pitocin bolus started, cord ceased pulsating and clamped then cut by FOB, cord blood collected, Farfan placenta intact with 3VC, fundus firm below umbilicus, minimal rubra noted. Strong family bonding observed, apgars 8/9, weight 4165 gms. Providers Nurse Mine Wirer: Blanca Godinez Client Application Support Specialist: Mahesh Chahal Nurse: Ebony Valentine Nurse: Pastora Luis Labor/Delivery Information Number of Babies in Womb: 1 Steroids Given: None Reason Steroids Not Administered: N/A Group Beta Strep: Negative Antibiotics Administered: No Rubella Status: Immune Blood Type: O+ Varicella Immunity: Immune Shoulder Dystocia: No Stages of Labor Onset of Labor Date: 05/19/24 Onset of Labor Time: 01:00 Complete Dilatation Date: 05/19/24 Complete Dilatation Time: 15:51 Labor - Stage 1 Duration: 14 hours and 51 minutes ROM Baby A: 05/19/24 ROM Baby A: 09:50 ROM Total Time- Baby A: [id number] Infant Delivery Date-Baby A: 05/19/24 Delivery Time-Baby A: 16:06 Labor Stage 2 Duration: 15 minutes Placenta Delivery Date-Baby A: 05/19/24 Placenta Delivery Time-Baby A: 16:11 Labor-Stage 3 Duration: 5 minutes Total Length of Labor-Baby A: 15 hours and 6 minutes Placenta Status: Delivered Baby A Infant Gender: Male Gestational Status: Term (39-41.6 wks) Gestational Age in Weeks/Days: 40 Weeks and 2 Days weight: 9 lb 2.916 oz Weight Comment: 4165 gms Length-Baby A: 21.5 in Score-1 Minute Interval(Baby A) Heart Rate-1 minute: 100 BPM or Greater Respiratory Effort- 1 minute: Spontaneous/Strong Cry Muscle Tone-1 minute: Active Movement Reflex Response-1 minute: Minimal Response Color-1 minute: Bluish Hands or Feet Total Score-1 minute: 8 Score-5 Minute Interval(Baby A) Heart Rate- 5 minute: 100 BPM or Greater Respiratory Effort-5 minute: Spontaneous/Strong Cry Muscle Tone-5 minute: Active Movement Reflex Response-5 minute: Prompt Response Color-5 minute: Bluish Hands or Feet Total Score- 5 minute: 9 Procedure Procedures: Cord Blood Collection Interventions Augmentation , Pitocin rate (mU/min): 4
[2024-05-19] MEDS: Dibucaine 1% 28 GM TUBE TP (17:12)
[2024-05-19] MEDS: Ibuprofen 600 MG TAB PO (17:12)
[2024-05-19] MEDS: Hamamelis Leaf/Glycerin 100 EACH BOX PR (17:12)
[2024-05-19] MEDS: Acetaminophen 325 MG TAB 650 MG PO (17:12)
[2024-05-20] VITALS: BP 101/47; PULSE 69; RESP 18; O2SAT 98
[2024-05-20 04:16] VITALS: BP 116/73; PULSE 82; RESP 17; TEMP 36.9; O2SAT 98
[2024-05-20] MEDS: Acetaminophen 325 MG TAB 650 MG PO ×3 (06:34→18:15)
[2024-05-20] MEDS: Ibuprofen 600 MG TAB PO ×3 (06:34→18:15)
--- NOTE | 2024-05-20 07:11 | W.PM.OBPNV1 ---
Date of service: 05/20/24 Time of Service: 07:11 Assessment and Plan Assessment and plan (1) Term delivered: Status: Acute Assessment and plan: A: PPD#1, nml recovery going well, happy with experience Note hx anxiety and depression, currently not taking medication P: Planning for discharge after 24 hours tonight Desires Paragard IUD for BCM after 6 wk appt Written instructions reviewed and given to pt Discussed with pt option to begin an SSRI proactively, she is considering Subjective Subjective Patient comments: No complaints, Pain well controlled, Tolerating diet and Flatus present Patient's Mood: happy Gypsy baby status: Doing well, Nursing well, Rooming in and Strong Bonding Observed Gypsy feeding status: Exclusively breast feeding Exam Physical Exam Vital signs: Temp Pulse Resp BP Pulse Ox 98.4 F 82 17 116/73 98 05/20/24 04:16 05/20/24 04:16 05/20/24 04:16 05/20/24 04:16 05/20/24 04:16 Vital Signs Reviewed: Yes Constitutional Constitutional: no acute distress, average body habitus and cooperative HEENT Exam HEENT Exam: Normal Neck Exam Neck Exam: Normal Breast Exam Bilateral: Breast Exam: Normal and Soft Nipple Exam: Normal and Uninjured Respiratory Exam Respiratory Exam: Normal Cardiovascular Exam Cardiovascular Exam: Normal Abdominal Exam Abdomen: Other (soft, nontender) Fundal Exam Fundus: Below Umbilicus and Firm Rectal Exam Rectal Exam: Normal Exam Perineum: Intact and Normal Extremities Exam Extremity Exam: Normal Back/Spine/Pelvis Exam Back Exam: Normal Skin Exam Skin Exam: Normal Neurological Exam Neurological Exam: Normal Psychiatric Exam Psychiatric Exam: Normal
[2024-05-20 08:30] VITALS: BP 96/65; PULSE 81; RESP 14; TEMP 36.5
--- NOTE | 2024-05-20 09:26 | W.ANESPOSTOP ---
Postoperative Evaluation Date, Time and Location Date Performed: 05/20/24 Time Performed: 09:26 Patient Location: Obstetrics Vital Signs Most Recent Imported Vital Signs: Most Recent Vital Signs Temp Pulse Resp BP Pulse Ox 36.5 C 81 14 96/65 L 98 05/20/24 08:30 05/20/24 08:30 05/20/24 08:30 05/20/24 08:30 05/20/24 04:16 Pain Score Most Recent Pain Score: Most Recent Pain Score Pain Level 0 05/19/24 15:00 Assessment Mental Status: Awake (Alert & Oriented to Patient Baseline) Airway and Respiratory Function: Patent airway with normal (patient baseline) respiratory exam Cardiovascular Function: Hemodynamically Stable Hydration Status: Adequately Hydrated Nausea & Vomiting: No Nausea or Vomiting Pain: Pt. Denies Any Pain Peripheral Nerve Block: Patient did not receive a nerve block
[2024-05-20 15:55] VITALS: BP 101/65; PULSE 88; RESP 16; TEMP 36.4; O2SAT 98
--- NOTE | 2024-05-20 16:09 | DSE_ITS ---
Date of service: 05/20/24 Time of Service: 16:09 DS: Diagnosis Discharge Diagnosis (1) Term delivered: Status: Acute Discharge Plan Disposition Patient Disposition: Home Condition: Good Discharge Details Reason For Visit: NST Admit Date/Time: 05/19/24 07:28 Admit Provider: Blanca Godinez Attending Provider: Blanca Godinez Primary Care Provider: Lindsay Hernandez Hospital Course Hospital Course: on day of admission under epidural anesthesia, nml course, plans discharge on PPD#1 Home Meds and New Rx's Prescriptions: No Action Gummies 400 mcg-35 mg- 25 mg-5 mg tablet,chewable 1 tab PO DAILY Qty: 90 3RF ferrous sulfate 325 mg (65 mg iron) tablet,delayed release (DR/EC) 325 mg PO DAILY Qty: 30 5RF Discharge Instructions Additional Instructions: Please keep your 2 and 6 week appt's with silver designer, call for any and all questions and concerns, plan for IUD after your 6 week check up. Stand Alone Forms: BC Instructions, BC Post Vaginal Deliver Activity:: Activity as Tolerated Equipment/Supplies:: No Equipment Needed Diet:: Normal Diet OB:DS Summary Summary Vaginal Delivery Method: Spontaneaous Contraception Discussed Contraception Discussed: Yes Contraceptive Plan: IUD, Gender-Baby A: Male weight: 9 lb 2.916 oz Status at Discharge Functional status at discharge: independent ambulation Overall status at discharge: patient is progressing back to baseline Mental Status: mental status grossly normal Speech and Movement: speech and movement normal and speech clear Mood: congruent mood Affect: normal affect Quality:SDOH Health Related Social Needs: No Data to Display Exam Physical Exam Vital signs: Temp Pulse Resp BP Pulse Ox 97.7 F 81 14 96/65 L 98 05/20/24 08:30 05/20/24 08:30 05/20/24 08:30 05/20/24 08:30 05/20/24 04:16 Constitutional Constitutional: no acute distress, average body habitus and cooperative HEENT Exam HEENT Exam: Normal Neck Exam Neck Exam: Normal Breast Exam Bilateral: Breast Exam: Normal and Soft Respiratory Exam Respiratory Exam: Normal Cardiovascular Exam Cardiovascular Exam: Normal Abdominal Exam Abdomen: Other (soft, nontender) Fundal Exam Fundus: Below Umbilicus and Firm Rectal Exam Rectal Exam: Normal Exam Perineum: Intact and Normal Extremities Exam Extremity Exam: Normal Back/Spine/Pelvis Exam Back Exam: Normal Skin Exam Skin Exam: Normal Neurological Exam Neurological Exam: Normal Psychiatric Exam Psychiatric Exam: Normal PFSH All Active Problems (Updated 05/20/24 @ 07:11 by Blanca Godinez) Term delivered (Acute) Body mass index [BMI] 32.0-32.9, adult (Acute) Post depression (Acute) Anxiety as acute reaction to gross stress (Acute) Medical History (Updated 05/20/24 @ 07:11 by Blanca Godinez) Normal labor History of macrosomia in infant in prior , currently Hx of iron deficiency anemia Reaction, situational, acute, to stress care following vaginal delivery COVID (~07/13/23) LGA (large for gestational age) fetus affecting management of mother Group B Streptococcus carrier, +RV culture, currently Anemia affecting Lower back pain Noted since wt loss, 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 Hx of gastritis Weight gain Two years in [place] with new , both relying on fast food. Subcutaneous nodule of neck left side, palpable, soft, mobile .. Surgical History Hx of pelvic surgery Laparoscopy for cyst removal, benign(?). PAP (-) .. All in [place]. Family History Paternal Grandfather Hypertension Stroke Father Hypertension Maternal Uncle Diabetes Paternal Grandmother Hypertension Paternal Uncle Schizophrenia Other Cancer Social History Smoking/Tobacco Use Status: Former Tobacco Use Smoking risk assessment performed?: Yes Alcohol Intake: current Alcohol Intake frequency: holidays/special occasions only Drug use: Never Substance use type: does not use Adopted: No Caregiver/Support person: No Foster care: No Household members: spouse Housing: apartment Number of Children: 0 Communication Needs: Language Barriers Education Level: college Details: Bachelor's Degree Do you need help understanding health information?: Rarely 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, [employer] Pets and animals: Yes Pets and animals: dog(s) Sexually active: Yes Do you think of yourself as: straight/heterosexual Current gender identity: female What is your relationship status?: How often do you talk on the phone with friends or family?: three or more times per week How often do you get together with friends or relatives?: once per week Do you belong to any clubs or organized social groups?: no Panel score (0-1 are the most socially isolated patients): 2 What type of physical activity do you participate in: none Daphnie/Zoroastrian: Lutheran Special daphnie needs: No Seatbelt use: always Helmet use: Yes Helmet use: always Drive intox or ride w/intox otr flatbed company truck driver: No Do you feel safe at home: Yes Do you feel safe in your relationship?: Yes Female Reproductive History Menstrual control method: condoms History History 2 Para 1 Hx # Term Pregnancies 1 Multiple births 0 Hx # Pregnancies 0 Ectopic pregnancies 0 AB induced 0 Hx Number of Living Children 1 AB spontaneous 0 Past Pregnancies Del. Date GA/Weeks # Preg Succ Route Wgt Sex Labor Lgth Anesth esia Location [facility] 12/19/22 40 No Yes vaginal 9 lb 7 oz Male [facility] Delivery Date: 12/19/22 Last Updated by: Elana Benjamin CNM Spont labor, epidural, pit aug, 2nd degree lac, Morris, pos. GBS DS: Data Vitals/I&O Vitals and I&O: Vital Signs Temperature 97.7 F 05/20/24 08:30 Temperature 97.7 F 05/19/24 06:59 Temperature Source Oral 05/20/24 08:30 Pulse 81 05/20/24 08:30 Pulse 115 05/19/24 06:59 Pulse Rhythm Regular 05/20/24 08:30 Respiratory Rate 14 05/20/24 08:30 Respiratory Depth Normal 05/20/24 04:16 Blood Pressure 96/65 L 05/20/24 08:30 Blood Pressure 96/61 05/19/24 06:59 Blood Pressure Mean 75 05/20/24 08:30 Pulse Oximetry 98 05/20/24 04:16 Pain Level 6 05/20/24 12:40 Comment pt is anxious at this time due to 05/20/24 04:16 Intake & Output 05/19/24 05/20/24 05/20/24 23:59 11:59 23:59 Intake Total 1036.001 / 1036.001 Output Total 1100 / 1700 Balance -63.999 / -663.999 Intake: IV 1036.001 / 1036.001 Output: Urine 1100 / 1700 Other: Urine Color Pale Pale Comment per patient, helped patient on and off bedpan. unmeasured zuri unt of urine at this time
== END 2024-05-20 18:35 | disposition home or self-care (01) | DRG 806 ==
LOC: OBS 16:27
PROVIDERS: Admitting Provider Advanced Practice Midwife; PCP Nurse Practitioner; Visit Provider Advanced Practice Midwife
DX: O99.02 Anemia complicating childbirth (principal); O23.593 Infection of other part of genital tract in pregnancy, third trimester; Z37.0 Single live birth; Z3A.40 40 weeks gestation of pregnancy; O77.0 Labor and delivery complicated by meconium in amniotic fluid; O69.81X0 Labor and delivery complicated by cord around neck, without compression, not applicable or unspecified; O99.844 Bariatric surgery status complicating childbirth; D64.9 Anemia, unspecified; O99.344 Other mental disorders complicating childbirth; F32.A Depression, unspecified; O36.63X0 Maternal care for excessive fetal growth, third trimester, not applicable or unspecified
CPT/HCPCS: 36415; 85027; 86850; 86900; 86901; 59025

== ENCOUNTER 2024-07-08 13:43 | Outpatient (REF) | payer OTHER, SELFPAY ==
--- NOTE | 2024-07-08 13:30 | PAPFT_PTH ---
PATIENT: Andreas Crane LOC: [facility] U#:[id number] AGE/SX: 28/F ROOM: RE07/08/[address]: Lucero Hernandez : 1995 BED: DIS: 07/08/2024 SPEC #: [id number] RECD: 07/08/24 18:02 STATUS: EDILMA BARBA #: [id number] GEMA: 07/08/24 13:[address]: Lucero Hernandez DEPT: [facility] Cytology RECD BY: Eileen Mazariegos ENTERED: 07/08/24 18:02 SP TYPE: PAPFT GERTRUDIS DR: Lindsay Hernandez APRN Tissues: 1 - CX/ENDOCX FOR PAP SMEARS Procedures: PAP THIN PREP/UVM Screening Comments: [id number] (CHLAMYDIA/GC)
[2024-07-09 12:46] LABS: Chlamydia Result Negative (Negative); GC Result Negative (Negative)
== END 2024-07-08 13:44 | disposition home or self-care (01) ==
LOC: LBN 13:43
PROVIDERS: PCP Nurse Practitioner; Visit Provider Advanced Practice Midwife
DX: Z30.09 Encounter for other general counseling and advice on contraception (principal); Z30.430 Encounter for insertion of intrauterine contraceptive device
CPT/HCPCS: 87491; 87591; 88142

== ENCOUNTER 2024-12-18 03:11 | Outpatient (CLI) | payer OTHER, SELFPAY ==
[2024-12-18 07:23] LABS: Abs Immature Grans 0.01 10^3/uL (0.0-0.06); Absolute Basophil Count 0.04 10^3/uL (0.0-0.2); Absolute Lymphocyte Count 1.73 10^3/uL (1.2-3.4); Absolute Monocyte Count 0.28 10^3/uL (0.1-0.8); Basophils % 0.8 %; Eosinophils % 1.9 %; HGB 12.1 g/dL (11.2-15.7); Immature Grans % 0.2 %; Lymphocytes % 32.9 %; MCH 29.1 pg (27.0-33.0); MCHC 33.6 % (32.0-36.0); MCV 87 fL (80-95); MPV 8.7 fL (8.0-11.0); Monocytes % 5.3 %; Neutrophils % 58.9 %; Platelet Count 288 10^3/uL (130-400); RBC 4.16 10^6/uL (3.93-5.22); RDW 12.1 % (11.7-14.6); RDW-SD 38.5 fL; WBC 5.26 10^3/uL (4.4-10.8)
[2024-12-18 07:31] LABS: Bilirubin Negative (Negative); Blood Trace-intact (Negative); Clarity Clear (Clear); Glucose Negative (Negative); Ketones Negative (Negative); Leukocyte Esterase Negative (Negative); Nitrite Negative (Negative); Specific Gravity 1.015 (1.005-1.025); Urobilinogen 0.2 mg/dL (Up to 0.2)
[2024-12-18 07:55] LABS: Hemoglobin A1C 5.3 % (<5.7)
[2024-12-18 08:14] LABS: Vitamin D 25 Total 30 ng/mL (30-100)
[2024-12-18 08:18] LABS: Anion Gap 7.7 mmol/L (3-11); BUN 13 mg/dL (7-18); CO2 27.3 mmol/L (21.0-32.0); CREATININE 0.7 mg/dL (0.55-1.02); Calcium 8.7 mg/dL (8.5-10.1); Calculated LDL 97 mg/dL (<100); Chloride 104 mmol/L (98-107); Cholesterol 165 mg/dL (<200); Estimated GFR 119.24 (mL/min/1.73m2); Glucose 82 mg/dL (74-106); HDL Cholesterol 59 mg/dL (>or=50); Potassium 3.7 mmol/L (3.5-5.1); Sodium 139 mmol/L (136-145); Triglyceride 45 mg/dL (<150); Vitamin B12 541 pg/mL (193-986)
[2024-12-18 08:20] LABS: WBC 0-2 HPF (0-5)
[2024-12-18 08:21] LABS: Bacteria Few HPF (Negative); C & S Indicated? No; Casts Negative LPF (Negative); Crystals Negative HPF (Negative); Epithelial Cells Moderate HPF (Negative); Mucus Trace (Negative); RBC 0-2 HPF (0-2)
[2024-12-22 01:47] LABS: Thiamine (Vitamin B1), WB 89 nmol/L (70-180)
[2024-12-23 23:15] LABS: Riboflavin (Vitamin B2), P 5 mcg/L (1-19)
== END 2024-12-18 03:12 | disposition home or self-care (01) ==
LOC: LBO 03:11
PROVIDERS: PCP Nurse Practitioner; Referring Provider Family Medicine; Visit Provider Family Medicine
DX: R53.83 Other fatigue (principal); Z13.9 Encounter for screening, unspecified
CPT/HCPCS: 36415; 80048; 80061; 82306; 84252; 81003; 81015; 82607; 83036; 84425; 84443; 85025

== ENCOUNTER 2024-12-30 02:29 | Outpatient (CLI) | payer OTHER, SELFPAY ==
--- NOTE | 2024-12-30 15:20 | W.NUTRFU ---
Date of service: 12/30/24 Time of Service: 14:00 Nutrition Note NOTE: Andreas referred to nutrition visit for fatigue. She states her goal is to talk about weight loss today as a way to help improve this fatigue as she feels it is associated at least partly to her extra weight. She has a 2yo and 7mo at home and feels the back to back pregnancies has made it a little harder to lose weight. 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 She started Wegovy about 2 months ago and finds this has helped with some cravings and her appetite but has some slight nausea with it. She states she is supported in her goals by her mother, who also wants to start being healthier along with Andreas. We discussed 4 pillars of weight mgt - diet, exercise, stress mgt and sleep. Encouraged her to work on the other 3 as sounds like she has a lot to juggle with moving, family, and work right now. We discussed 3 areas to focus on along with exercise and drinking lots of water (even though [facility] provides juice discouraged her from drinking it). -asked she track added sugar intake periodically and compare intake with goal of staying <17g per day -asked to track fiber periodically and aim for minimum of 25g per day -asked to track/plan for higher protein intake of ~125g per day and try to get a significant amount from plant sources to maintain lower kcal intake ( and choose lean animal sources) Also provided a breakdown of other recommended macros and how to plug into enterprise resource planner for help with meal and snack ideas. Suggested she get a minimum of 30g protein as early as possible in the day and stop eating early at 6-7pm. She has my contact info should she have more questions or would like additional follow up support Time Spent in Nutritional Counseling and Treatment: 25 min
== END 2024-12-30 02:30 | disposition home or self-care (01) ==
LOC: DS 02:29
PROVIDERS: PCP Nurse Practitioner; Visit Provider Dietitian, Registered
DX: R53.83 Other fatigue (principal)
CPT/HCPCS: 00123; 97802

== ENCOUNTER 2025-03-18 01:29 | Outpatient (CLI) | payer OTHER, SELFPAY ==
--- NOTE | 2025-03-18 | DI.RAD_ITS ---
Exam(s) XR FOOT LT COMPLETE EXAM: XR FOOT LT COMPLETE CLINICAL HISTORY: LEFT FOOT PAIN, M79.672. TECHNIQUE: 2D digital imaging was performed of the left foot. Three images were obtained. AP, oblique and lateral views were obtained. COMPARISON: No exams were available for comparison FINDINGS: BONES: No acute fracture is present. No bony destructive lesion is seen. JOINTS: No dislocation present. SOFT TISSUE: Normal. IMPRESSION: Unremarkable radiographs of the left foot. DATA REPOSITORY: RADIATION DOSE DELIVERED:
== END 2025-03-18 01:49 ==
LOC: DI 03-19 01:29
PROVIDERS: PCP Nurse Practitioner; Visit Provider Physician Assistant Medical
DX: M79.672 Pain in left foot (principal)
CPT/HCPCS: 73630